=== PATIENT | male | born 1975 | race Caucasian/White ===

== ENCOUNTER 2020-02-04 15:30 | Inpatient (IN) | payer OTHER ==
[2020-02-04] MEDS ORDERED: HYDROmorphone 1 MG/ML Syringe IM ONE (16:56)
[2020-02-04] MEDS ORDERED: Ondansetron 4 MG/2 ML SDV IM ONE (16:56)
[2020-02-04] MEDS ORDERED: Sodium Chloride 0.9% 10 ML Syringe FLUSH PRN ×2 (16:57→21:13)
[2020-02-04] MEDS ORDERED: Lactated Ringers 1,000 ML IV ONE (16:57)
[2020-02-04] MEDS ORDERED: Sodium Chloride 0.9% 2.5 ML Syringe FLUSH PRN ×2 (16:57→21:13)
--- NOTE | 2020-02-04 17:00 | EDM.PDOC ---
<Mario Montoya - Last Filed: 02/04/20 18:40> ED HPI GENERAL MEDICAL PROBLEM - General Chief Complaint: Abdominal Pain Stated Complaint: GALL BLADDER COMPLICATIONS Time Seen by Provider: 02/04/20 15:32 Source of Information: Reports: Patient History Limitations: Reports: No Limitations - History of Present Illness INITIAL COMMENTS - FREE TEXT/NARRATIVE: There is a very pleasant 44-year-old man with no pertinent past medical history presenting with abdominal pain, nausea, and vomiting. Patient reports the onset of right upper quadrant abdominal pain about 5 to 6 hours ago while at rest. He describes sharp right upper quadrant abdominal pain that occasionally radiates to the groin. Nothing makes it better or worse. He also reports about 3 episodes of nonbloody emesis along with persistent nausea. No history of any preceding abdominal pain. Denies any fever, hematemesis, dysuria, urinary frequency, diarrhea, or rectal bleeding. No prior history of gallstones or kidney stones. No self treatment prior to arrival, no other complaints. ROS: A 10-point review of systems was negative, except as noted in the HPI (or in the ROS section of this note). Past medical history: Reviewed, no additional pertinent history. Surgical history: Reviewed in system, no additional pertinent history. Social history: Reviewed in system, no additional pertinent history. Family history: Reviewed in system, no additional pertinent history. PHYSICAL EXAM Vital signs reviewed. Nursing notes reviewed. Constitutional: Awake, alert, looks uncomfortable. Head: Normocephalic, atraumatic. Eyes: EOMI, conjunctiva normal, no discharge, no scleral icterus. Ears, Nose, Throat: External ears and nose normal, moist oral mucosa. Cardiovascular: 2+ radial pulse, capillary refill less than 2 seconds. Pulmonary: normal work of breathing, no accessory muscle use. Abdomen/GI: Soft, marked right upper quadrant tenderness, nondistended, no guarding or rigidity, no masses. No CVA tenderness. No tenderness at McBurney's point. Musculoskeletal: No deformities. Integumentary: Appropriate color for ethnicity, warm, moist, no pallor or jaundice, no rash. Neurologic: Alert, answering questions appropriately, normal speech, no facial droop, moving all extremities well. Psychiatric: Appropriate mood and affect, normal thought process. This patient was seen and evaluated during the 2019 SARS-CoV-2 novel coronavirus pandemic period. Community viral transmission is ongoing at time of this encounter and the emergency department is operating under pandemic response procedures. abdomen Pain Score (Numeric/FACES): 10 - Related Data Allergies Allergy/AdvReac Type Severity Reaction Status Date / Time No Known Allergies Allergy Verified 02/04/20 19:02 ED ROS GENERAL - Review of Systems Review Of Systems: See Below ED EXAM, GI/ABD - Physical Exam Exam: See Below Course - Vital Signs Text/Narrative:: 44-year-old male presenting with sudden onset right upper quadrant abdominal pain, nausea, and vomiting. Differential diagnosis includes but is not limited to: Biliary colic, cholecystitis, choledocholithiasis, kidney stone, infected kidney stone, pyelonephritis, acute hepatitis, pancreatitis, gastritis, peptic ulcer disease, perforated viscus, AAA, bowel obstruction, ileus, and many others. 5 PM: Ordered IV access, fluids, pain medications, nausea medications, labs, urinalysis, will plan for CT scan of the abdomen and pelvis. 6:20 PM: IV access has been established. This was delayed because the patient was continually rolling over in bed while nurses were trying to establish an IV and due to difficult vasculature. CBC shows normal cell lines. Metabolic panel shows hyperglycemia with normal carbon dioxide. AST 45, ALT 102, normal bilirubin and alkaline phosphatase, normal lipase. Added on a troponin. Patient is going down for a CT scan. 6:40 PM: Awaiting CT images and radiology read. Ordered IV fentanyl for additional pain relief. Patient remained in the emergency department through the end of my shift. Signed out in person my colleague Dr. Hernandez, refer to his note for the disposition. Departure - Departure Disposition: Refer to Observation Clinical Impression: Biliary colic - Discharge Information Referrals: PCP,None [Primary Care Provider] - Forms: ED Department Discharge <Dat Hernandez - Last Filed: 02/04/20 20:51> Course - Vital Signs Last Recorded V/S: Last Vital Signs Temp 95.9 F L 02/04/20 16:25 Pulse 61 02/04/20 19:09 Resp 16 02/04/20 16:25 BP 175/92 H 02/04/20 19:09 Pulse Ox 93 L 02/04/20 19:09 - Orders/Labs/Meds Orders: Active Orders 24 hr Category Date Time Status Patient Status [ADT] Routine ADT 02/04/20 20:49 Ordered Pulse Oximetry [RC] ASDIRECTED Care 02/04/20 16:57 Active NPO Now [Nothing per Oral Now Diet] [DIET] Diet 02/05/20 Breakfast Ordered Abdomen Ltd [US] Stat Exams 02/04/20 19:21 Taken UA RFX DANILO AND CULT IF INDIC [URIN] Stat Lab 02/04/20 16:00 Ordered Lactated Ringers @ 75 MLS/HR(1000ml) Med 02/04/20 21:00 Ordered Lactated Ringers [Ringers, Lactated] 1,000 ml IV ASDIRECTED Sodium Chloride 0.9% [Saline Flush] Med 02/04/20 16:57 Active 10 ml FLUSH ASDIRECTED PRN Sodium Chloride 0.9% [Saline Flush] Med 02/04/20 16:57 Active 2.5 ml FLUSH ASDIRECTED PRN Saline Lock Insert [OM.PC] Stat Oth 02/04/20 16:57 Ordered Medication Orders Lactated Ringer's (Ringers, Lactated) 1,000 mls @ 75 mls/hr IV ASDIRECTED CHICO Sodium Chloride (Saline Flush) 10 ml FLUSH ASDIRECTED PRN PRN Reason: Keep Vein Open Last Admin: 02/04/20 18:50 Dose: 10 ml Documented by: LAYSSA Sodium Chloride (Saline Flush) 2.5 ml FLUSH ASDIRECTED PRN PRN Reason: Keep Vein Open Last Admin: 02/04/20 18:49 Dose: 2.5 ml Documented by: ALYSSA Labs: Laboratory Tests 02/04/20 02/04/20 02/04/20 Range/Units 17:40 17:40 17:40 WBC 10.63 (4.0-11.0) K/uL RBC 5.21 (4.50-5.90) M/uL Hgb 15.2 (13.0-17.0) g/dL Hct 45.4 (38.0-50.0) % MCV 87.1 (80.0-98.0) fL MCH 29.2 (27.0-32.0) pg MCHC 33.5 (31.0-37.0) g/dL RDW Std Deviation 40.1 (28.0-62.0) fl RDW Coeff of Harris 13 (11.0-15.0) % Plt Count 257 (150-400) K/uL MPV 10.10 (7.40-12.00) fL Neut % (Auto) 85.9 H (48.0-80.0) % Lymph % (Auto) 10.0 L (16.0-40.0) % [place] % (Auto) 3.8 (0.0-15.0) % Eos % (Auto) 0.1 (0.0-7.0) % Baso % (Auto) 0.2 (0.0-1.5) % Neut # (Auto) 9.1 H (1.4-5.7) K/uL Lymph # (Auto) 1.1 (0.6-2.4) K/uL [place] # (Auto) 0.4 (0.0-0.8) K/uL Eos # (Auto) 0.0 (0.0-0.7) K/uL Baso # (Auto) 0.0 (0.0-0.1) K/uL Nucleated RBC % 0.0 /100WBC Nucleated RBCs # 0 K/uL Sodium 140 (136-148) mmol/L Potassium 4.1 (3.5-5.1) mmol/L Chloride 104 (98-107) mmol/L Carbon Dioxide 24.3 (21.0-32.0) mmol/L BUN 8 (7.0-18.0) mg/dL Creatinine 1.1 (0.8-1.3) mg/dL Est Cr Clr Drug Dosing 78.45 mL/min Estimated GFR (MDRD) > 60.0 ml/min Glucose 171 H (74-106) mg/dL Calcium 9.0 (8.5-10.1) mg/dL Total Bilirubin 0.4 (0.2-1.0) mg/dL AST 45 H (15-37) IU/L ALT 102 H (14-63) IU/L Alkaline Phosphatase 65 (46-116) U/L Troponin I < 0.050 (0.000-0.056) ng/mL Total Protein 8.0 (6.4-8.2) g/dL Albumin 4.0 (3.4-5.0) g/dL Globulin 4.0 (2.6-4.0) g/dL Albumin/Globulin Ratio 1.0 (0.9-1.6) Lipase 89 (73-393) U/L Meds: Medications Generic Name Dose Route Start Last Admin Trade Name Freq PRN Reason Stop Dose Admin Lactated Ringer's 1,000 mls @ 75 mls/hr 02/04/20 21:00 Ringers, Lactated IV ASDIRECTED CHICO Sodium Chloride 10 ml 02/04/20 16:57 02/04/20 18:50 Saline Flush FLUSH 10 ml ASDIRECTED PRN Administration Keep Vein Open Sodium Chloride 2.5 ml 02/04/20 16:57 02/04/20 18:49 Saline Flush FLUSH 2.5 ml ASDIRECTED PRN Administration Keep Vein Open Discontinued Medications Generic Name Dose Route Start Last Admin Trade Name Freq PRN Reason Stop Dose Admin Fentanyl 100 mcg 02/04/20 18:38 02/04/20 18:46 Fentanyl IVPUSH 02/04/20 18:39 100 mcg ONETIME ONE Administration Hydromorphone HCl 1 mg 02/04/20 16:56 02/04/20 17:19 Dilaudid IM 02/04/20 16:57 1 mg ONETIME ONE Administration Lactated Ringer's 1,000 mls @ 999 mls/hr 02/04/20 16:57 02/04/20 18:46 Ringers, Lactated IV 02/04/20 17:57 999 mls/hr .BOLUS ONE Administration Iopamidol 100 ml 02/04/20 18:47 02/04/20 18:47 Isovue Multipack-370 (76%) IVPUSH 02/04/20 18:48 100 ml ONETIME ONE Administration Morphine Sulfate 4 mg 02/04/20 20:48 Morphine IVPUSH 02/04/20 20:49 ONETIME ONE Ondansetron HCl 4 mg 02/04/20 16:56 02/04/20 17:19 Zofran IM 02/04/20 16:57 4 mg ONETIME ONE Administration Departure - Departure Time of Disposition: 20:51 Sepsis Event Note (ED) - Focused Exam Vital Signs: Vital Signs Temp Pulse Resp BP Pulse Ox 02/04/20 19:09 61 175/92 H 93 L 02/04/20 16:25 95.9 F L 57 L 16 168/93 H 95 - My Orders Last 24 Hours: My Active Orders 02/04/20 19:21 Abdomen Ltd [US] Stat 02/04/20 20:49 Patient Status [ADT] Routine 02/04/20 21:00 Lactated Ringers @ 75 MLS/HR(1000ml) Lactated Ringers [Ringers, Lactated] 1,000 ml IV ASDIRECTED 02/05/20 Breakfast NPO Now [Nothing per Oral Now Diet] [DIET] - Assessment/Plan Last 24 Hours: My Active Orders 02/04/20 19:21 Abdomen Ltd [US] Stat 02/04/20 20:49 Patient Status [ADT] Routine 02/04/20 21:00 Lactated Ringers @ 75 MLS/HR(1000ml) Lactated Ringers [Ringers, Lactated] 1,000 ml IV ASDIRECTED 02/05/20 Breakfast NPO Now [Nothing per Oral Now Diet] [DIET] Assessment:: Patient received in signout from Dr. Montoya at [address] with impacted stone in the gallbladder neck ultrasound demonstrates a mildly thickened wall but no pericholecystic fluid CBD is normal. Patient discussed with Dr. Canales of general surgery. Will admit n.p.o. IV fluids and reassessment in the morning.
[2020-02-04 18:11] LABS: BLOOD UREA NITROGEN,BUN 8 mg/dL (7.0-18.0); CARBON DIOXIDE,CO2 24.3 mmol/L (21.0-32.0); CHLORIDE,CL 104 mmol/L (98-107); GLUCOSE RANDOM 171 mg/dL (74-106); LIPASE 89 U/L (73-393); POTASSIUM,K 4.1 mmol/L (3.5-5.1); SODIUM,NA 140 mmol/L (136-148)
[2020-02-04] MEDS ORDERED: fentaNYL 50 MCG/ML SDV IVPUSH ONE (18:38)
[2020-02-04] MEDS ORDERED: Iopamidol 755 MG/ML 500 ML Multipack Bottle IVPUSH ONE (18:47)
--- NOTE | 2020-02-04 19:19 | CT ---
INDICATION: Right upper quadrant pain. TECHNIQUE: CT abdomen and pelvis acquired with IV contrast. 100 mL of Isovue 370 administered. COMPARISON: None available FINDINGS: Lower chest: Mild subsegmental atelectasis. Gynecomastia. Liver: Hepatic steatosis. 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 Spleen: Unremarkable. Pancreas: A subcentimeter fat attenuation focus in the distal pancreatic body could be related to invaginated peripancreatic fat. Gallbladder and bile ducts: A 9 mm annular calcification at the gallbladder neck on image 55, suggestive of a gallstone. Subtle ill-defined luminal densities within the gallbladder could represent sludge or additional poorly calcified gallstones. Adrenal glands: Unremarkable. Kidneys: No hydronephrosis. A 3 mm nonobstructive left renal lower pole calcification. GI tract: No bowel obstruction. Normal appendix. No significant pericolonic changes. Few colonic diverticula without diverticulitis. Vascular structures: Unremarkable. Lymph nodes: Unremarkable. Miscellaneous: No significant free fluid or free air. Pelvic Organs: Borderline prostatomegaly. No gross bladder abnormality seen. Bones: Unremarkable for age. IMPRESSION: An apparent gallstone at the gallbladder neck. Recommend sonographic evaluation to exclude early gallbladder inflammation, given the history. Hepatic steatosis. 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 Borderline prostatomegaly Please note that all CT scans at this facility use dose modulation, iterative reconstruction, and/or weight-based dosing when appropriate to reduce radiation dose to as low as reasonably achievable. Dictated by Ariel Pino MD @ Feb 04 2020 7:05PM Signed by Dr. Ariel Pino @ Feb 04 2020 7:18PM
[2020-02-04] MEDS ORDERED: Morphine 4 MG/ML Syringe IVPUSH ONE (20:48)
[2020-02-04] MEDS: Lactated Ringers 1,000 ML IV SCH (21:02)
--- NOTE | 2020-02-04 21:04 | US ---
TECHNIQUE: Hunter scale and color Doppler sonographic imaging of the right upper abdomen. INDICATION: Right upper abdominal pain, cholelithiasis. COMPARISON: Same date abdominal CT. FINDINGS: Liver is normal in contour with diffusely increased echogenicity. No suspicious hepatic lesion or intrahepatic biliary dilatation. - Gallbladder contains multiple stones and echogenic sludge. Gallbladder wall measures 4-5 millimeters in diameter. No pericholecystic fluid or gallbladder wall edema. - Common bile duct measures 4 mm diameter. - Right kidney measures 12.2 cm in length and is without hydronephrosis. - Overlying bowel gas precludes evaluation of the pancreas, aorta, and IVC. IMPRESSION: 1. Cholelithiasis with mild gallbladder wall thickening. Findings are indeterminate though early acute cholecystitis is not excluded. Consider further evaluation with nuclear medicine hepatobiliary scan, as clinically indicated. 2. Diffuse hepatic steatosis. Dictated by Los Lee MD @ 02/04/2020 9:03:27 PM Dictated by: Los Lee MD @ 02/04/2020 21:03:33 (Electronically Signed)
--- NOTE | 2020-02-04 21:11 | PCM.HP.2 ---
H&P History of Present Illness - General Date of Service: 02/04/20 Admit Problem/Dx: Admission Diagnosis/Problem Admission Diagnosis/Problem Biliary colic Source of Information: Patient History Limitations: Reports: No Limitations - History of Present Illness Initial Comments - Free Text/Narative: Patient is a 44 year old male who presented to the ER tonight with an acute on set of pain in the RUQ. He states he had similar pain that was no so severe 2 years ago. He was told he was dehydrated but doesn't recall if he had gallbladder issues at the time. He states that around 11 o'clock today he developed sharp RUQ. He vomited three times afterwards. He presented to the ER. His vitals were stable. He had a normal white blood count but an elevated neurtophil percent. He had an elevated glucose and mildly elevated ast and alt. CT abdomen pelvis showed gallstones. An US was performed that showed multiple stones as well as one in the neck of the gallbladder. He had a border line thickened gallbladder wall. There was questionable early acute appendicitis. He was given morphine but still had pain. abdomen Pain Score (Numeric/FACES): 10 - Related Data Allergies/Adverse Reactions: Allergies Allergy/AdvReac Type Severity Reaction Status Date / Time No Known Allergies Allergy Verified 02/04/20 19:02 Past Medical History Cardiovascular History: Reports: None Respiratory History: Reports: None Gastrointestinal History: Reports: None Endocrine/Metabolic History: Reports: None - Past Surgical History Other HEENT Surgeries/Procedures: wisdom teeth extraction Musculoskeletal Surgical History: Reports: ORIF, Other (See Below) (Bilateral ankle surgery, right wrist surgery) Social & Family History - Family History Family Medical History: No Pertinent Family History - Tobacco Use Tobacco Use Status *Q: Never Tobacco User Second Hand Smoke Exposure: No - Caffeine Use Caffeine Use: Reports: None - Recreational Drug Use Recreational Drug Use: No H&P Review of Systems - Review of Systems: Review Of Systems: Comprehensive ROS is negative, except as noted in HPI. Exam - Exam Exam: See Below - Vital Signs Vital Signs: Last Vital Signs Temp 35.7 C L 02/04/20 20:51 Pulse 60 02/04/20 20:51 Resp 18 02/04/20 20:51 BP 172/97 H 02/04/20 20:51 Pulse Ox 95 02/04/20 20:51 Weight: 106.594 kg - Exam General: Alert, Oriented, Severe Distress HEENT: Conjunctiva Clear, Mucosa Moist & [place], Posterior Pharynx Clear Neck: Supple Lungs: Clear to Auscultation, Normal Respiratory Effort Cardiovascular: Regular Rate, Regular Rhythm GI/Abdominal Exam: Soft, No Distention, No Mass, Tender (RUQ) Back Exam: Normal Inspection, Full Range of Motion Extremities: Normal Inspection - Patient Data Lab Results Last 24 hrs: Laboratory Results - last 24 hr 02/04/20 02/04/20 02/04/20 Range/Units 17:40 17:40 17:40 WBC 10.63 (4.0-11.0) K/uL RBC 5.21 (4.50-5.90) M/uL Hgb 15.2 (13.0-17.0) g/dL Hct 45.4 (38.0-50.0) % MCV 87.1 (80.0-98.0) fL MCH 29.2 (27.0-32.0) pg MCHC 33.5 (31.0-37.0) g/dL RDW Std Deviation 40.1 (28.0-62.0) fl RDW Coeff of Harris 13 (11.0-15.0) % Plt Count 257 (150-400) K/uL MPV 10.10 (7.40-12.00) fL Neut % (Auto) 85.9 H (48.0-80.0) % Lymph % (Auto) 10.0 L (16.0-40.0) % [place] % (Auto) 3.8 (0.0-15.0) % Eos % (Auto) 0.1 (0.0-7.0) % Baso % (Auto) 0.2 (0.0-1.5) % Neut # (Auto) 9.1 H (1.4-5.7) K/uL Lymph # (Auto) 1.1 (0.6-2.4) K/uL [place] # (Auto) 0.4 (0.0-0.8) K/uL Eos # (Auto) 0.0 (0.0-0.7) K/uL Baso # (Auto) 0.0 (0.0-0.1) K/uL Nucleated RBC % 0.0 /100WBC Nucleated RBCs # 0 K/uL Sodium 140 (136-148) mmol/L Potassium 4.1 (3.5-5.1) mmol/L Chloride 104 (98-107) mmol/L Carbon Dioxide 24.3 (21.0-32.0) mmol/L BUN 8 (7.0-18.0) mg/dL Creatinine 1.1 (0.8-1.3) mg/dL Est Cr Clr Drug Dosing 78.45 mL/min Estimated GFR (MDRD) > 60.0 ml/min Glucose 171 H (74-106) mg/dL Calcium 9.0 (8.5-10.1) mg/dL Total Bilirubin 0.4 (0.2-1.0) mg/dL AST 45 H (15-37) IU/L ALT 102 H (14-63) IU/L Alkaline Phosphatase 65 (46-116) U/L Troponin I < 0.050 (0.000-0.056) ng/mL Total Protein 8.0 (6.4-8.2) g/dL Albumin 4.0 (3.4-5.0) g/dL Globulin 4.0 (2.6-4.0) g/dL Albumin/Globulin Ratio 1.0 (0.9-1.6) Lipase 89 (73-393) U/L Result Diagrams: 02/04/20 17:40 02/04/20 17:40 Sepsis Event Note - Evaluation Sepsis Screening Result: No Definite Risk - Focused Exam Vital Signs: Vital Signs Temp Pulse Resp BP Pulse Ox 02/04/20 20:51 35.7 C L 60 18 172/97 H 95 02/04/20 20:22 35.7 C L 65 18 167/94 H 95 02/04/20 19:52 35.7 C L 61 18 164/94 H 95 02/04/20 19:21 35.7 C L 62 18 171/91 H 95 02/04/20 19:09 61 175/92 H 93 L 02/04/20 16:25 35.5 C L 57 L 16 168/93 H 95 Problem List Initiated/Reviewed/Updated: Yes Orders Last 24hrs: Active Orders 24 hr Category Date Time Status Patient Status [ADT] Routine ADT 02/04/20 20:49 Active Pulse Oximetry [RC] ASDIRECTED Care 02/04/20 16:57 Active NPO Now [Nothing per Oral Now Diet] [DIET] Diet 02/05/20 Breakfast Active CORONAVIRUS COVID-19 PCR PHL Stat Lab 02/04/20 20:52 Ordered UA RFX DANILO AND CULT IF INDIC [URIN] Stat Lab 02/04/20 16:00 Ordered Lactated Ringers [Ringers, Lactated] 1,000 ml Med 02/04/20 21:00 Active IV ASDIRECTED Sodium Chloride 0.9% [Saline Flush] Med 02/04/20 16:57 Active 10 ml FLUSH ASDIRECTED PRN Sodium Chloride 0.9% [Saline Flush] Med 02/04/20 16:57 Active 2.5 ml FLUSH ASDIRECTED PRN Saline Lock Insert [OM.PC] Stat Oth 02/04/20 16:57 Ordered Medication Orders Lactated Ringer's (Ringers, Lactated) 1,000 mls @ 75 mls/hr IV ASDIRECTED CHICO Last Admin: 02/04/20 21:02 Dose: 75 mls/hr Documented by: JEFFERY Sodium Chloride (Saline Flush) 10 ml FLUSH ASDIRECTED PRN PRN Reason: Keep Vein Open Last Admin: 02/04/20 18:50 Dose: 10 ml Documented by: ALYSSA Sodium Chloride (Saline Flush) 2.5 ml FLUSH ASDIRECTED PRN PRN Reason: Keep Vein Open Last Admin: 02/04/20 18:49 Dose: 2.5 ml Documented by: ALYSSA Assessment/Plan Comment:: Patient and I discussed the pathophysiology of biliary disease. He has symptomatic cholelithiasis or early acute cholecystitis. Either way, given his pain, he should have a cholecystectomy. Will admit to the floor for IV and oral pain control, IV fluid resuscitation, IV antibiotics and bowel rest. I explained the laparoscopic and open approach to the procedure. I will attempt it laparoscopically and convert to open should I be unable to perform it safely. I explained the expected perioperative course as well as the risks including bleeding, infection, or damage to surrounding structures. He verbalized understanding and wishes to proceed.
[2020-02-04] MEDS ORDERED: Ondansetron 4 MG/2 ML SDV IVPUSH PRN (21:13)
[2020-02-04] MEDS ORDERED: diphenhydrAMINE 50 MG/ML SDV IVPUSH PRN (21:13)
[2020-02-04] MEDS ORDERED: Acetaminophen/oxyCODONE 325-5 MG Tab PO PRN (21:13)
[2020-02-04] MEDS ORDERED: Sodium Chloride 0.9% 10 ML SDV IV PRN (21:13)
[2020-02-04] MEDS ORDERED: hydrALAZINE 20 MG/ML SDV IVPUSH PRN (21:13)
[2020-02-04 21:37] LABS: HEMOGLOBIN A1C 6.2 %
[2020-02-04] MEDS ORDERED: Ketorolac 30 MG/ML SDV IVPUSH ONE (21:43)
[2020-02-04] MEDS: HYDROmorphone 2 MG/ML Syringe IVPUSH PRN (21:52)
[2020-02-04] MEDS: Piperacillin/Tazobactam 3.375 GM in Sodium Chloride 0.9% 50 ML IV SCH (22:40)
[2020-02-05] MEDS: Piperacillin/Tazobactam 3.375 GM in Sodium Chloride 0.9% 50 ML IV SCH ×4 (03:43→22:07)
[2020-02-05] MEDS: HYDROmorphone 2 MG/ML Syringe IVPUSH PRN ×5 (04:19→13:59)
[2020-02-05 06:40] LABS: BLOOD UREA NITROGEN,BUN 7 mg/dL (7.0-18.0); CARBON DIOXIDE,CO2 28.1 mmol/L (21.0-32.0); CHLORIDE,CL 104 mmol/L (98-107); GLUCOSE RANDOM 100 mg/dL (74-106); POTASSIUM,K 3.6 mmol/L (3.5-5.1); SODIUM,NA 140 mmol/L (136-148)
[2020-02-05] MEDS: Lactated Ringers 1,000 ML IV SCH ×2 (06:47→20:26)
[2020-02-05] MEDS: Scopolamine 1.5 MG Transdermal Patch TRDERM SCH (07:53)
--- NOTE | 2020-02-05 09:01 | PCM.SURGPN ---
- General Info Date of Service: 02/05/20 Functional Status: Reports: Other (Patient's pain is under better control today. He denies any nausea or vomiting overnight. Vital signs stable. Making good urine.) - Review of Systems General: Reports: Fatigue, Malaise HEENT: Reports: No Symptoms Pulmonary: Reports: No Symptoms Cardiovascular: Reports: No Symptoms Gastrointestinal: Reports: Abdominal Pain (RUQ) Musculoskeletal: Reports: No Symptoms Skin: Reports: No Symptoms - Patient Data Vitals - Most Recent: Last Vital Signs Temp 36.6 C 02/05/20 07:37 Pulse 63 02/05/20 07:37 Resp 14 02/05/20 07:37 BP 147/77 H 02/05/20 07:37 Pulse Ox 93 L 02/05/20 07:37 Weight - Most Recent: 266.9 kg I&O - Last 24 Hours: Intake & Output 02/04/20 02/05/20 02/05/20 22:59 06:59 14:59 Intake Total 1026 Output Total 800 Balance 226 Lab Results Last 24 Hrs: Laboratory Results - last 24 hr 02/04/20 02/04/20 02/04/20 Range/Units 00:00 17:40 17:40 WBC 10.63 (4.0-11.0) K/uL RBC 5.21 (4.50-5.90) M/uL Hgb 15.2 (13.0-17.0) g/dL Hct 45.4 (38.0-50.0) % MCV 87.1 (80.0-98.0) fL MCH 29.2 (27.0-32.0) pg MCHC 33.5 (31.0-37.0) g/dL RDW Std Deviation 40.1 (28.0-62.0) fl RDW Coeff of Harris 13 (11.0-15.0) % Plt Count 257 (150-400) K/uL MPV 10.10 (7.40-12.00) fL Neut % (Auto) 85.9 H (48.0-80.0) % Lymph % (Auto) 10.0 L (16.0-40.0) % [place] % (Auto) 3.8 (0.0-15.0) % Eos % (Auto) 0.1 (0.0-7.0) % Baso % (Auto) 0.2 (0.0-1.5) % Neut # (Auto) 9.1 H (1.4-5.7) K/uL Lymph # (Auto) 1.1 (0.6-2.4) K/uL [place] # (Auto) 0.4 (0.0-0.8) K/uL Eos # (Auto) 0.0 (0.0-0.7) K/uL Baso # (Auto) 0.0 (0.0-0.1) K/uL Nucleated RBC % 0.0 /100WBC Nucleated RBCs # 0 K/uL Sodium 140 (136-148) mmol/L Potassium 4.1 (3.5-5.1) mmol/L Chloride 104 (98-107) mmol/L Carbon Dioxide 24.3 (21.0-32.0) mmol/L BUN 8 (7.0-18.0) mg/dL Creatinine 1.1 (0.8-1.3) mg/dL Est Cr Clr Drug Dosing 78.45 mL/min Estimated GFR (MDRD) > 60.0 ml/min Glucose 171 H (74-106) mg/dL Hemoglobin A1c (4.5 - 6.2) % Calcium 9.0 (8.5-10.1) mg/dL Total Bilirubin 0.4 (0.2-1.0) mg/dL AST 45 H (15-37) IU/L ALT 102 H (14-63) IU/L Alkaline Phosphatase 65 (46-116) U/L Troponin I (0.000-0.056) ng/mL Total Protein 8.0 (6.4-8.2) g/dL Albumin 4.0 (3.4-5.0) g/dL Globulin 4.0 (2.6-4.0) g/dL Albumin/Globulin Ratio 1.0 (0.9-1.6) Lipase 89 (73-393) U/L Urine Color YELLOW Urine Appearance CLEAR Urine pH 5.5 (5.0-8.0) Ur Specific [place] 1.025 (1.001-1.035) Urine Protein NEGATIVE (NEGATIVE) mg/dL Urine Glucose (UA) NEGATIVE (NEGATIVE) mg/dL Urine Ketones NEGATIVE (NEGATIVE) mg/dL Urine Occult Blood SMALL H (NEGATIVE) Urine Nitrite NEGATIVE (NEGATIVE) Urine Bilirubin NEGATIVE (NEGATIVE) Urine Urobilinogen 0.2 (<2.0) EU/dL Ur Leukocyte Esterase NEGATIVE (NEGATIVE) Urine RBC 0-2 (0-2/HPF) Urine WBC 0-1 (0-5/HPF) Ur Epithelial Cells RARE (NONE-FEW) Urine Bacteria RARE (NEGATIVE) SARS-CoV-2 RNA (PANCHO) (NEGATIVE) 02/04/20 02/04/20 02/04/20 Range/Units 17:40 17:40 21:15 WBC (4.0-11.0) K/uL RBC (4.50-5.90) M/uL Hgb (13.0-17.0) g/dL Hct (38.0-50.0) % MCV (80.0-98.0) fL MCH (27.0-32.0) pg MCHC (31.0-37.0) g/dL RDW Std Deviation (28.0-62.0) fl RDW Coeff of Harris (11.0-15.0) % Plt Count (150-400) K/uL MPV (7.40-12.00) fL Neut % (Auto) (48.0-80.0) % Lymph % (Auto) (16.0-40.0) % [place] % (Auto) (0.0-15.0) % Eos % (Auto) (0.0-7.0) % Baso % (Auto) (0.0-1.5) % Neut # (Auto) (1.4-5.7) K/uL Lymph # (Auto) (0.6-2.4) K/uL [place] # (Auto) (0.0-0.8) K/uL Eos # (Auto) (0.0-0.7) K/uL Baso # (Auto) (0.0-0.1) K/uL Nucleated RBC % /100WBC Nucleated RBCs # K/uL Sodium (136-148) mmol/L Potassium (3.5-5.1) mmol/L Chloride (98-107) mmol/L Carbon Dioxide (21.0-32.0) mmol/L BUN (7.0-18.0) mg/dL Creatinine (0.8-1.3) mg/dL Est Cr Clr Drug Dosing mL/min Estimated GFR (MDRD) ml/min Glucose (74-106) mg/dL Hemoglobin A1c 6.2 (4.5 - 6.2) % Calcium (8.5-10.1) mg/dL Total Bilirubin (0.2-1.0) mg/dL AST (15-37) IU/L ALT (14-63) IU/L Alkaline Phosphatase (46-116) U/L Troponin I < 0.050 (0.000-0.056) ng/mL Total Protein (6.4-8.2) g/dL Albumin (3.4-5.0) g/dL Globulin (2.6-4.0) g/dL Albumin/Globulin Ratio (0.9-1.6) Lipase (73-393) U/L Urine Color Urine Appearance Urine pH (5.0-8.0) Ur Specific [place] (1.001-1.035) Urine Protein (NEGATIVE) mg/dL Urine Glucose (UA) (NEGATIVE) mg/dL Urine Ketones (NEGATIVE) mg/dL Urine Occult Blood (NEGATIVE) Urine Nitrite (NEGATIVE) Urine Bilirubin (NEGATIVE) Urine Urobilinogen (<2.0) EU/dL Ur Leukocyte Esterase (NEGATIVE) Urine RBC (0-2/HPF) Urine WBC (0-5/HPF) Ur Epithelial Cells (NONE-FEW) Urine Bacteria (NEGATIVE) SARS-CoV-2 RNA (PANCHO) NEGATIVE (NEGATIVE) 02/05/20 02/05/20 Range/Units 05:50 05:50 WBC 9.30 (4.0-11.0) K/uL RBC 4.84 (4.50-5.90) M/uL Hgb 13.8 (13.0-17.0) g/dL Hct 42.6 (38.0-50.0) % MCV 88.0 (80.0-98.0) fL MCH 28.5 (27.0-32.0) pg MCHC 32.4 (31.0-37.0) g/dL RDW Std Deviation 41.0 (28.0-62.0) fl RDW Coeff of Harris 13 (11.0-15.0) % Plt Count 257 (150-400) K/uL MPV 10.00 (7.40-12.00) fL Neut % (Auto) 65.2 (48.0-80.0) % Lymph % (Auto) 23.4 (16.0-40.0) % [place] % (Auto) 10.2 (0.0-15.0) % Eos % (Auto) 1.0 (0.0-7.0) % Baso % (Auto) 0.2 (0.0-1.5) % Neut # (Auto) 6.1 H (1.4-5.7) K/uL Lymph # (Auto) 2.2 (0.6-2.4) K/uL [place] # (Auto) 1.0 H (0.0-0.8) K/uL Eos # (Auto) 0.1 (0.0-0.7) K/uL Baso # (Auto) 0.0 (0.0-0.1) K/uL Nucleated RBC % 0.0 /100WBC Nucleated RBCs # 0 K/uL Sodium 140 (136-148) mmol/L Potassium 3.6 (3.5-5.1) mmol/L Chloride 104 (98-107) mmol/L Carbon Dioxide 28.1 (21.0-32.0) mmol/L BUN 7 (7.0-18.0) mg/dL Creatinine 1.0 (0.8-1.3) mg/dL Est Cr Clr Drug Dosing 95.31 mL/min Estimated GFR (MDRD) > 60.0 ml/min Glucose 100 (74-106) mg/dL Hemoglobin A1c (4.5 - 6.2) % Calcium 8.7 (8.5-10.1) mg/dL Total Bilirubin 0.7 (0.2-1.0) mg/dL AST 33 (15-37) IU/L ALT 87 H (14-63) IU/L Alkaline Phosphatase 57 (46-116) U/L Troponin I (0.000-0.056) ng/mL Total Protein 6.9 (6.4-8.2) g/dL Albumin 3.4 (3.4-5.0) g/dL Globulin 3.5 (2.6-4.0) g/dL Albumin/Globulin Ratio 1.0 (0.9-1.6) Lipase (73-393) U/L Urine Color Urine Appearance Urine pH (5.0-8.0) Ur Specific [place] (1.001-1.035) Urine Protein (NEGATIVE) mg/dL Urine Glucose (UA) (NEGATIVE) mg/dL Urine Ketones (NEGATIVE) mg/dL Urine Occult Blood (NEGATIVE) Urine Nitrite (NEGATIVE) Urine Bilirubin (NEGATIVE) Urine Urobilinogen (<2.0) EU/dL Ur Leukocyte Esterase (NEGATIVE) Urine RBC (0-2/HPF) Urine WBC (0-5/HPF) Ur Epithelial Cells (NONE-FEW) Urine Bacteria (NEGATIVE) SARS-CoV-2 RNA (PANCHO) (NEGATIVE) Med Orders - Current: Current Medications Diphenhydramine HCl (Benadryl) 50 mg IVPUSH Q4H PRN PRN Reason: Itching Hydralazine HCl (Apresoline) 10 mg IVPUSH Q2H PRN PRN Reason: Hypertension Hydromorphone HCl (Dilaudid) 0.5 mg IVPUSH Q1H PRN PRN Reason: Pain (severe 7-10) Last Admin: 02/05/20 06:41 Dose: 0.5 mg Documented by: Lactated Ringer's (Ringers, Lactated) 1,000 mls @ 125 mls/hr IV ASDIRECTED [facility] Last Admin: 02/05/20 06:47 Dose: 75 mls/hr Documented by: Piperacillin Sod/Tazobactam (Sod 3.375 gm/ Sodium Chloride) 50 mls @ 100 mls/hr IV Q6H [facility] Last Admin: 02/05/20 03:43 Dose: 100 mls/hr Documented by: Ondansetron HCl (Zofran) 4 mg IVPUSH Q6H PRN PRN Reason: Nausea/Vomiting Last Admin: 02/05/20 04:13 Dose: 4 mg Documented by: Oxycodone/Acetaminophen (Percocet 325-5 Mg) 2 tab PO Q4H PRN PRN Reason: Pain (moderate 4-6) Scopolamine (Transderm-Scop) 1.5 mg TRDERM Q72H [facility] Last Admin: 02/05/20 07:53 Dose: 1.5 mg Documented by: Sodium Chloride (Saline Flush) 10 ml FLUSH ASDIRECTED PRN PRN Reason: Keep Vein Open Last Admin: 02/04/20 18:50 Dose: 10 ml Documented by: Sodium Chloride (Saline Flush) 2.5 ml FLUSH ASDIRECTED PRN PRN Reason: Keep Vein Open Last Admin: 02/04/20 18:49 Dose: 2.5 ml Documented by: Sodium Chloride (Saline Flush) 10 ml FLUSH ASDIRECTED PRN PRN Reason: Keep Vein Open Sodium Chloride (Saline Flush) 2.5 ml FLUSH ASDIRECTED PRN PRN Reason: Keep Vein Open Sodium Chloride (Normal Saline) 10 ml IV ASDIRECTED PRN PRN Reason: IV Use Discontinued Medications Fentanyl (Fentanyl) 100 mcg IVPUSH ONETIME ONE Stop: 02/04/20 18:39 Last Admin: 02/04/20 18:46 Dose: 100 mcg Documented by: Hydromorphone HCl (Dilaudid) 1 mg IM ONETIME ONE Stop: 02/04/20 16:57 Last Admin: 02/04/20 17:19 Dose: 1 mg Documented by: Lactated Ringer's (Ringers, Lactated) 1,000 mls @ 999 mls/hr IV .BOLUS ONE Stop: 02/04/20 17:57 Last Admin: 02/04/20 18:46 Dose: 999 mls/hr Documented by: Iopamidol (Isovue Multipack-370 (76%)) 100 ml IVPUSH ONETIME ONE Stop: 02/04/20 18:48 Last Admin: 02/04/20 18:47 Dose: 100 ml Documented by: Ketorolac Tromethamine (Toradol) 30 mg IVPUSH ONETIME ONE Stop: 02/04/20 21:44 Last Admin: 02/04/20 21:53 Dose: 30 mg Documented by: Morphine Sulfate (Morphine) 4 mg IVPUSH ONETIME ONE Stop: 02/04/20 20:49 Last Admin: 02/04/20 20:56 Dose: 4 mg Documented by: Ondansetron HCl (Zofran) 4 mg IM ONETIME ONE Stop: 02/04/20 16:57 Last Admin: 02/04/20 17:19 Dose: 4 mg Documented by: - Exam General: Alert, Oriented Lungs: Clear to Auscultation, Normal Respiratory Effort Cardiovascular: Regular Rate, Regular Rhythm GI/Abdominal Exam: Soft, No Distention, No Mass, Tender (mild tenderness in RUQ) Skin: Warm, Dry, Intact Sepsis Event Note - Evaluation Sepsis Screening Result: No Definite Risk - Focused Exam Vital Signs: Vital Signs Temp Pulse Resp BP Pulse Ox Pulse Ox 02/05/20 07:37 36.6 C 63 14 147/77 H 93 L 02/05/20 03:36 36.1 C 62 16 159/85 H 95 02/04/20 23:31 36.4 C 74 18 129/84 94 L 02/04/20 22:40 36.4 C 66 20 143/86 H 93 L 02/04/20 22:00 35.7 C L 58 L 18 159/87 H 95 02/04/20 21:13 94 L - Problem List & Annotations (1) Biliary colic SNOMED Code(s): 00946397 Code(s): K80.50 - CALCULUS OF BILE DUCT W/O CHOLANGITIS OR CHOLECYST W/O OBST Status: Acute Current Visit: Yes - Problem List Review Problem List Initiated/Reviewed/Updated: Yes - My Orders Last 24 Hours: Active Orders 24 hr Category Date Time Status Patient Status [ADT] Routine ADT 02/04/20 21:13 Active May Shower [RC] ASDIRECTED Care 02/04/20 21:13 Active Oxygen Therapy [RC] PRN Care 02/04/20 21:13 Active Pulse Oximetry [RC] ASDIRECTED Care 02/04/20 16:57 Active RT Incentive Spirometry [RC] Q1HWA Care 02/04/20 21:13 Active Up ad Crystal [RC] ASDIRECTED Care 02/04/20 21:13 Active Vital Signs [RC] PER UNIT ROUTINE Care 02/04/20 21:13 Active NPO Now [Nothing per Oral Now Diet] [DIET] Diet 02/05/20 Breakfast Active Acetaminophen/oxyCODONE [Percocet 325-5 MG] Med 02/04/20 21:13 Active 2 tab PO Q4H PRN HYDROmorphone [Dilaudid] Med 02/04/20 21:13 Active 0.5 mg IVPUSH Q1H PRN Lactated Ringers [Ringers, Lactated] 1,000 ml Med 02/04/20 21:00 Active IV ASDIRECTED Ondansetron [Zofran] Med 02/04/20 21:13 Active 4 mg IVPUSH Q6H PRN Piperacillin/Tazobactam [Piperacil-Tazobact] 3.375 gm Med 02/04/20 22:00 Active Sodium Chloride 0.9% [Normal Saline] 50 ml IV Q6H Scopolamine [Transderm-Scop] Med 02/04/20 21:30 Active 1.5 mg TRDERM Q72H Sodium Chloride 0.9% [Normal Saline] Med 02/04/20 21:13 Active 10 ml IV ASDIRECTED PRN Sodium Chloride 0.9% [Saline Flush] Med 02/04/20 16:57 Active 10 ml FLUSH ASDIRECTED PRN Sodium Chloride 0.9% [Saline Flush] Med 02/04/20 21:13 Active 10 ml FLUSH ASDIRECTED PRN Sodium Chloride 0.9% [Saline Flush] Med 02/04/20 16:57 Active 2.5 ml FLUSH ASDIRECTED PRN Sodium Chloride 0.9% [Saline Flush] Med 02/04/20 21:13 Active 2.5 ml FLUSH ASDIRECTED PRN diphenhydrAMINE [Benadryl] Med 02/04/20 21:13 Active 50 mg IVPUSH Q4H PRN hydrALAZINE [Apresoline] Med 02/04/20 21:13 Active 10 mg IVPUSH Q2H PRN Peripheral IV Insertion Adult [OM.PC] Urgent Oth 02/04/20 21:13 Ordered Saline Lock Insert [OM.PC] Stat Oth 02/04/20 16:57 Ordered Resuscitation Status Routine Resus Stat 02/04/20 21:13 Ordered Medication Orders Diphenhydramine HCl (Benadryl) 50 mg IVPUSH Q4H PRN PRN Reason: Itching Hydralazine HCl (Apresoline) 10 mg IVPUSH Q2H PRN PRN Reason: Hypertension Hydromorphone HCl (Dilaudid) 0.5 mg IVPUSH Q1H PRN PRN Reason: Pain (severe 7-10) Last Admin: 02/05/20 06:41 Dose: 0.5 mg Documented by: Admin: 02/05/20 04:19 Dose: 0.5 mg Documented by: Admin: 02/04/20 21:52 Dose: 0.5 mg Documented by: JEFFERY Lactated Ringer's (Ringers, Lactated) 1,000 mls @ 125 mls/hr IV ASDIRECTED [facility] Last Admin: 02/05/20 06:47 Dose: 75 mls/hr Documented by: Infusion: 02/05/20 06:47 Dose: 125 mls/hr Documented by: Admin: 02/04/20 21:02 Dose: 75 mls/hr Documented by: JEFFERY Piperacillin Sod/Tazobactam (Sod 3.375 gm/ Sodium Chloride) 50 mls @ 100 mls/hr IV Q6H [facility] Last Admin: 02/05/20 03:43 Dose: 100 mls/hr Documented by: Infusion: 02/04/20 23:10 Dose: 100 mls/hr Documented by: Admin: 02/04/20 22:40 Dose: 100 mls/hr Documented by: JEFFERY Ondansetron HCl (Zofran) 4 mg IVPUSH Q6H PRN PRN Reason: Nausea/Vomiting Last Admin: 02/05/20 04:13 Dose: 4 mg Documented by: LOBITO Oxycodone/Acetaminophen (Percocet 325-5 Mg) 2 tab PO Q4H PRN PRN Reason: Pain (moderate 4-6) Scopolamine (Transderm-Scop) 1.5 mg TRDERM Q72H [facility] Last Admin: 02/05/20 07:53 Dose: 1.5 mg Documented by: LOBITO Sodium Chloride (Saline Flush) 10 ml FLUSH ASDIRECTED PRN PRN Reason: Keep Vein Open Last Admin: 02/04/20 18:50 Dose: 10 ml Documented by: ALYSSA Sodium Chloride (Saline Flush) 2.5 ml FLUSH ASDIRECTED PRN PRN Reason: Keep Vein Open Last Admin: 02/04/20 18:49 Dose: 2.5 ml Documented by: ALYSSA Sodium Chloride (Saline Flush) 10 ml FLUSH ASDIRECTED PRN PRN Reason: Keep Vein Open Sodium Chloride (Saline Flush) 2.5 ml FLUSH ASDIRECTED PRN PRN Reason: Keep Vein Open Sodium Chloride (Normal Saline) 10 ml IV ASDIRECTED PRN PRN Reason: IV Use - Plan Plan (Free Text/Narrative):: Plan for surgery today.The patient and I discussed the pathophysiology of biliary disease. For symptomatic cholelithiasis, treatment is removal of the gallbladder. The patient and I discussed the laparoscopic and open approach to cholecystectomy. Should I be unable to remove the gallbladder safely via the laparoscopic approach I will convert to open. We discussed the expected perioperative course as well as the risks including bleeding infection or damage to surrounding structures. Patient verbalized understanding and wishes to proceed. Continue to be nothing by mouth with IV fluids and IV antibiotics.
[2020-02-05] MEDS ORDERED: Ondansetron 4 MG/2 ML SDV ONE (10:37)
[2020-02-05] MEDS ORDERED: Midazolam 1 MG/ML 2 ML SDV ONE (10:37)
[2020-02-05] MEDS ORDERED: Propofol 200 MG/20 ML SDV ONE (10:37)
[2020-02-05] MEDS ORDERED: Ketorolac 30 MG/ML SDV ONE (10:37)
[2020-02-05] MEDS ORDERED: Rocuronium Bromide 50 MG/5 ML Syringe ONE ×3 (10:37→18:22)
[2020-02-05] MEDS ORDERED: fentaNYL 100 MCG/2 ML SDV ONE ×2 (10:37→16:54)
[2020-02-05] MEDS ORDERED: Lidocaine 2% 5 ML SDV ONE (10:37)
[2020-02-05] MEDS ORDERED: Ketamine 500 mg/10 ML MDV ONE (10:38)
[2020-02-05] MEDS ORDERED: HYDROmorphone 2 MG/ML Syringe ONE (10:38)
--- NOTE | 2020-02-05 12:34 | PCM.PREANE ---
Preanesthetic Assessment - Anesthesia/Transfusion/Family Hx Anesthesia History: Prior Anesthesia Without Reaction Family History of Anesthesia Reaction: No - Review of Systems General: No Symptoms Pulmonary: No Symptoms Cardiovascular: No Symptoms Gastrointestinal: Abdominal Pain Neurological: No Symptoms Other: Reports: None - Physical Assessment NPO Status Date: 02/04/20 Vital Signs: Last Vital Signs Temp 98.1 F 02/05/20 11:28 Pulse 61 02/05/20 11:28 Resp 22 H 02/05/20 11:28 BP 148/90 H 02/05/20 11:28 Pulse Ox 91 L 02/05/20 11:28 Height: 5 ft 10 in Weight: 266.9 kg ASA Class: 2 Mental Status: Alert & Oriented x3 Airway Class: Mallampati = 2 Dentition: Reports: Normal Dentition ROM/Head Extension: Full Lungs: Clear to Auscultation, Normal Respiratory Effort Cardiovascular: Regular Rate, Regular Rhythm - Lab Values: Laboratory Last Values WBC 9.30 K/uL (4.0-11.0) 02/05/20 05:50 RBC 4.84 M/uL (4.50-5.90) 02/05/20 05:50 Hgb 13.8 g/dL (13.0-17.0) 02/05/20 05:50 Hct 42.6 % (38.0-50.0) 02/05/20 05:50 MCV 88.0 fL (80.0-98.0) 02/05/20 05:50 MCH 28.5 pg (27.0-32.0) 02/05/20 05:50 MCHC 32.4 g/dL (31.0-37.0) 02/05/20 05:50 RDW Std Deviation 41.0 fl (28.0-62.0) 02/05/20 05:50 RDW Coeff of Harris 13 % (11.0-15.0) 02/05/20 05:50 Plt Count 257 K/uL (150-400) 02/05/20 05:50 MPV 10.00 fL (7.40-12.00) 02/05/20 05:50 Neut % (Auto) 65.2 % (48.0-80.0) 02/05/20 05:50 Lymph % (Auto) 23.4 % (16.0-40.0) 02/05/20 05:50 [place] % (Auto) 10.2 % (0.0-15.0) 02/05/20 05:50 Eos % (Auto) 1.0 % (0.0-7.0) 02/05/20 05:50 Baso % (Auto) 0.2 % (0.0-1.5) 02/05/20 05:50 Neut # (Auto) 6.1 K/uL (1.4-5.7) H 02/05/20 05:50 Lymph # (Auto) 2.2 K/uL (0.6-2.4) 02/05/20 05:50 [place] # (Auto) 1.0 K/uL (0.0-0.8) H 02/05/20 05:50 Eos # (Auto) 0.1 K/uL (0.0-0.7) 02/05/20 05:50 Baso # (Auto) 0.0 K/uL (0.0-0.1) 02/05/20 05:50 Nucleated RBC % 0.0 /100WBC 02/05/20 05:50 Nucleated RBCs # 0 K/uL 02/05/20 05:50 Sodium 140 mmol/L (136-148) 02/05/20 05:50 Potassium 3.6 mmol/L (3.5-5.1) 02/05/20 05:50 Chloride 104 mmol/L (98-107) 02/05/20 05:50 Carbon Dioxide 28.1 mmol/L (21.0-32.0) 02/05/20 05:50 BUN 7 mg/dL (7.0-18.0) 02/05/20 05:50 Creatinine 1.0 mg/dL (0.8-1.3) 02/05/20 05:50 Est Cr Clr Drug Dosing 95.31 mL/min 02/05/20 05:50 Estimated GFR (MDRD) > 60.0 ml/min 02/05/20 05:50 Glucose 100 mg/dL (74-106) 02/05/20 05:50 Hemoglobin A1c 6.2 % (4.5-6.2) 02/04/20 17:40 Calcium 8.7 mg/dL (8.5-10.1) 02/05/20 05:50 Total Bilirubin 0.7 mg/dL (0.2-1.0) 02/05/20 05:50 AST 33 IU/L (15-37) 02/05/20 05:50 ALT 87 IU/L (14-63) H 02/05/20 05:50 Alkaline Phosphatase 57 U/L (46-116) 02/05/20 05:50 Troponin I < 0.050 ng/mL (0.000-0.056) 02/04/20 17:40 Total Protein 6.9 g/dL (6.4-8.2) 02/05/20 05:50 Albumin 3.4 g/dL (3.4-5.0) 02/05/20 05:50 Globulin 3.5 g/dL (2.6-4.0) 02/05/20 05:50 Albumin/Globulin Ratio 1.0 (0.9-1.6) 02/05/20 05:50 Lipase 89 U/L (73-393) 02/04/20 17:40 Urine Color YELLOW 02/04/20 00:00 Urine Appearance CLEAR 02/04/20 00:00 Urine pH 5.5 (5.0-8.0) 02/04/20 00:00 Ur Specific Jud 1.025 (1.001-1.035) 02/04/20 00:00 Urine Protein NEGATIVE mg/dL (NEGATIVE) 02/04/20 00:00 Urine Glucose (UA) NEGATIVE mg/dL (NEGATIVE) 02/04/20 00:00 Urine Ketones NEGATIVE mg/dL (NEGATIVE) 02/04/20 00:00 Urine Occult Blood SMALL (NEGATIVE) H 02/04/20 00:00 Urine Nitrite NEGATIVE (NEGATIVE) 02/04/20 00:00 Urine Bilirubin NEGATIVE (NEGATIVE) 02/04/20 00:00 Urine Urobilinogen 0.2 EU/dL (<2.0) 02/04/20 00:00 Ur Leukocyte Esterase NEGATIVE (NEGATIVE) 02/04/20 00:00 Urine RBC 0-2 (0-2/HPF) 02/04/20 00:00 Urine WBC 0-1 (0-5/HPF) 02/04/20 00:00 Ur Epithelial Cells RARE (NONE-FEW) 02/04/20 00:00 Urine Bacteria RARE (NEGATIVE) 02/04/20 00:00 SARS-CoV-2 RNA (PANCHO) NEGATIVE (NEGATIVE) 02/04/20 21:15 - Allergies Allergies/Adverse Reactions: Allergies Allergy/AdvReac Type Severity Reaction Status Date / Time No Known Allergies Allergy Verified 02/04/20 22:38 - Blood Blood Available: No - Anesthesia Plan Pre-Op Medication Ordered: None - Acknowledgements Anesthesia Type Planned: General Anesthesia Pt an Appropriate Candidate for the Planned Anesthesia: Yes Alternatives and Risks of Anesthesia Discussed w Pt/Guardian: Yes Pt/Guardian Understands and Agrees with Anesthesia Plan: Yes Additional Comments: PMH: obesity, intermittently hypertensive PLAN: get PreAnesthesia Questionnaire Cardiovascular History: Reports: None Respiratory History: Reports: None Gastrointestinal History: Reports: None Endocrine/Metabolic History: Reports: None - Infectious Disease History Infectious Disease History: Reports: Chicken Pox, Measles - Past Surgical History Other HEENT Surgeries/Procedures: wisdom teeth extraction Musculoskeletal Surgical History: Reports: ORIF, Other (See Below) - SUBSTANCE USE Tobacco Use Status *Q: Never Tobacco User Tobacco Use Within Last Twelve Months: No Second Hand Smoke Exposure: No Date of Last Drink: 02/01/20 Recreational Drug Use History: No - CURRENT (IN HOUSE) MEDS Current Meds: Current Medications Diphenhydramine HCl (Benadryl) 50 mg IVPUSH Q4H PRN PRN Reason: Itching Hydralazine HCl (Apresoline) 10 mg IVPUSH Q2H PRN PRN Reason: Hypertension Hydromorphone HCl (Dilaudid) 0.5 mg IVPUSH Q1H PRN PRN Reason: Pain (severe 7-10) Last Admin: 02/05/20 11:45 Dose: 0.5 mg Documented by: Lactated Ringer's (Ringers, Lactated) 1,000 mls @ 125 mls/hr IV ASDIRECTED [facility] Last Admin: 02/05/20 06:47 Dose: 75 mls/hr Documented by: Piperacillin Sod/Tazobactam (Sod 3.375 gm/ Sodium Chloride) 50 mls @ 100 mls/hr IV Q6H [facility] Last Admin: 02/05/20 09:38 Dose: 100 mls/hr Documented by: Ondansetron HCl (Zofran) 4 mg IVPUSH Q6H PRN PRN Reason: Nausea/Vomiting Last Admin: 02/05/20 04:13 Dose: 4 mg Documented by: Oxycodone/Acetaminophen (Percocet 325-5 Mg) 2 tab PO Q4H PRN PRN Reason: Pain (moderate 4-6) Scopolamine (Transderm-Scop) 1.5 mg TRDERM Q72H [facility] Last Admin: 02/05/20 07:53 Dose: 1.5 mg Documented by: Sodium Chloride (Saline Flush) 10 ml FLUSH ASDIRECTED PRN PRN Reason: Keep Vein Open Last Admin: 02/04/20 18:50 Dose: 10 ml Documented by: Sodium Chloride (Saline Flush) 2.5 ml FLUSH ASDIRECTED PRN PRN Reason: Keep Vein Open Last Admin: 02/04/20 18:49 Dose: 2.5 ml Documented by: Sodium Chloride (Saline Flush) 10 ml FLUSH ASDIRECTED PRN PRN Reason: Keep Vein Open Sodium Chloride (Saline Flush) 2.5 ml FLUSH ASDIRECTED PRN PRN Reason: Keep Vein Open Sodium Chloride (Normal Saline) 10 ml IV ASDIRECTED PRN PRN Reason: IV Use Discontinued Medications Fentanyl (Fentanyl) 100 mcg IVPUSH ONETIME ONE Stop: 02/04/20 18:39 Last Admin: 02/04/20 18:46 Dose: 100 mcg Documented by: Fentanyl (Sublimaze) Confirm Administered Dose 100 mcg .ROUTE .STK-MED ONE Stop: 02/05/20 10:38 Hydromorphone HCl (Dilaudid) 1 mg IM ONETIME ONE Stop: 02/04/20 16:57 Last Admin: 02/04/20 17:19 Dose: 1 mg Documented by: Hydromorphone HCl (Dilaudid) Confirm Administered Dose 2 mg .ROUTE .STK-MED ONE Stop: 02/05/20 10:39 Lactated Ringer's (Ringers, Lactated) 1,000 mls @ 999 mls/hr IV .BOLUS ONE Stop: 02/04/20 17:57 Last Admin: 02/04/20 18:46 Dose: 999 mls/hr Documented by: Iopamidol (Isovue Multipack-370 (76%)) 100 ml IVPUSH ONETIME ONE Stop: 02/04/20 18:48 Last Admin: 02/04/20 18:47 Dose: 100 ml Documented by: Ketamine HCl (Ketalar) Confirm Administered Dose 500 mg .ROUTE .STK-MED ONE Stop: 02/05/20 10:39 Ketorolac Tromethamine (Toradol) 30 mg IVPUSH ONETIME ONE Stop: 02/04/20 21:44 Last Admin: 02/04/20 21:53 Dose: 30 mg Documented by: Ketorolac Tromethamine (Toradol) Confirm Administered Dose 30 mg .ROUTE .STK-MED ONE Stop: 02/05/20 10:38 Lidocaine (Xylocaine-Mpf 2%) Confirm Administered Dose 5 ml .ROUTE .STK-MED ONE Stop: 02/05/20 10:38 Midazolam HCl (Versed 1 Mg/Ml) Confirm Administered Dose 2 mg .ROUTE .STK-MED ONE Stop: 02/05/20 10:38 Morphine Sulfate (Morphine) 4 mg IVPUSH ONETIME ONE Stop: 02/04/20 20:49 Last Admin: 02/04/20 20:56 Dose: 4 mg Documented by: Ondansetron HCl (Zofran) 4 mg IM ONETIME ONE Stop: 02/04/20 16:57 Last Admin: 02/04/20 17:19 Dose: 4 mg Documented by: Ondansetron HCl (Zofran) Confirm Administered Dose 4 mg .ROUTE .STK-MED ONE Stop: 02/05/20 10:38 Propofol (Diprivan 20 Ml) Confirm Administered Dose 200 mg .ROUTE .STK-MED ONE Stop: 02/05/20 10:38 Rocuronium Caldwell (Rocuronium Caldwell) Confirm Administered Dose 50 mg .ROUTE .STK-MED ONE Stop: 02/05/20 10:38
[2020-02-05] MEDS ORDERED: Bupivacaine 0.5% 30 ML SDV ONE ×2 (14:17→16:40)
[2020-02-05] MEDS ORDERED: Sugammadex Sodium 200 MG/2 ML VIAL ONE ×2 (14:21→18:43)
[2020-02-05] MEDS ORDERED: ceFAZolin 1 GM Vial ONE (16:40)
--- NOTE | 2020-02-05 19:14 | PCM.OPNOTE ---
- General Post-Op/Procedure Note Date of Surgery/Procedure: 02/05/20 Operative Procedure(s): Laparoscopic converted to open cholecystectomy Findings: Severely inflamed gallbladder containing multiple stones with some impacted in the neck Pre Op Diagnosis: Acute cholecystitis Post-Op Diagnosis: Same Anesthesia Technique: General ET Tube Primary Surgeon: Rowena Canales Secondary Surgeon: Andrei So Pathology: gallbladder Fluid Replacement, Intraop: 2,500 EBL in mLs: 550 Surgical Drain/Tube Type: Mike Drain Condition: Stable Free Text/Narrative:: Intake & Output 02/05/20 02/05/20 02/05/20 06:59 14:59 22:59 Intake Total 1026 50 0 Output Total 800 1050 Balance 226 50 -1050
[2020-02-05 19:47] LABS: BLOOD UREA NITROGEN,BUN 7 mg/dL (7.0-18.0); CARBON DIOXIDE,CO2 28.7 mmol/L (21.0-32.0); CHLORIDE,CL 105 mmol/L (98-107); GLUCOSE RANDOM 145 mg/dL (74-106); POTASSIUM,K 4.1 mmol/L (3.5-5.1); SODIUM,NA 139 mmol/L (136-148)
--- NOTE | 2020-02-05 20:04 | PCM.POSTAN ---
POST ANESTHESIA ASSESSMENT - MENTAL STATUS Mental Status: Alert, Oriented - VITAL SIGNS Vital Signs: Last Vital Signs Temp 38.1 C 02/05/20 18:55 Pulse 71 02/05/20 19:59 Resp 17 02/05/20 19:59 BP 129/66 02/05/20 19:59 Pulse Ox 94 L 02/05/20 19:59 - RESPIRATORY Respiratory Status: Respiratory Rate WNL, Airway Patent, O2 Saturation Stable - CARDIOVASCULAR CV Status: Pulse Rate WNL, Blood Pressure Stable - GASTROINTESTINAL GI Status: No Symptoms Free Text/Narrative:: Denies nausea - PAIN Pain Score: 0 (Denies pain at rest. Reports pain only with coughing, and has been encouraged to splint.) - POST OP HYDRATION Hydration Status: Adequate & Stable - OBSERVATIONS Free Text/Narrative:: Alert and stable, clear to transport to Med Surg unit.
--- NOTE | 2020-02-05 20:54 | OR ---
SURGEON: ROEWNA MALIK MD DATE OF PROCEDURE: 02/05/2020 PREOPERATIVE DIAGNOSIS: Acute cholecystitis due to cholelithiasis, gallbladder hydrops. POSTOPERATIVE DIAGNOSIS: Same PROCEDURE PERFORMED: Laparoscopic converted to open cholecystectomy. PRIMARY SURGEON: Dr. Rowena Malik. SECONDARY SURGEON: Dr. Andrei So. ANESTHESIA: General endotracheal anesthesia. FLUIDS: 2500 mL crystalloid. ESTIMATED BLOOD LOSS: 550 mL. URINE OUTPUT: 800 mL. FINDINGS: Severely inflamed gallbladder containing multiple gallstones impacted at the neck of the gallbladder. COMPLICATIONS: None. INDICATIONS: The patient is a 44-year-old male who presented yesterday with severe right upper quadrant pain. A CT scan and ultrasound showed multiple gallstones within the gallbladder and 1 impacted at the neck of the gallbladder. The patient was admitted for IV fluids, IV antibiotics, pain control, and bowel rest. This morning, he feels slightly better, but continues to complain of severe pain. The patient's CBC and CMP appeared grossly normal. The decision was made to proceed to the operating room for a laparoscopic possible open cholecystectomy. I explained the pathophysiology of biliary disease to the patient. We discussed that I would attempt this laparoscopically, but convert to open should I be unable to perform it safely laparoscopically. I explained the risks including bleeding, infection, or damage to surrounding structures. The patient verbalized understanding and wishes to proceed. PROCEDURE IN DETAIL: The patient was brought into the OR and placed on the OR table in supine position. A time-out was completed verifying the patient's name, age, date of , allergies, and procedure to be performed. General endotracheal anesthesia was induced. The left arm was tucked to the patient's side and a Rodriguez catheter placed. The abdomen was then prepped and draped in usual standard fashion. I anesthetized the infraumbilical fold with 0.5% Marcaine plain. A 15 blade was used to make an incision along the infraumbilical fold. Cautery was used to dissect down to the level of subcutaneous fat. Using retractors, I dissected down to the level of the fascia. The fascia was elevated with Kochers and incised sharply with a curved mitchell scissors. The peritoneum was identified. This was elevated with hemostats and incised sharply with Metzenbaum scissors. Entry into the abdomen was palpated digitally. A 12- mm Lita trocar was placed into the abdomen and the abdomen was insufflated. A 5-mm 30-degree scope was inserted and I inspected the area underneath my initial trocar placement. No damage to surrounding structures was noted. The patient was then placed into reverse Trendelenburg position and airplaned slightly to the left. 5-mm trocars were placed in the following locations under direct visualization; one in the epigastric area, one in the right flank, and one 2 fingerbreadths below the right subcostal margin in the midclavicular line. I swept the omentum down into the lower quadrant and identified his gallbladder. This was distended and inflamed consistent with acute cholecystitis. I grasped the dome with an atraumatic grasper and gently elevated the gallbladder. There were omental adhesions along the body of the gallbladder. These were swept down using gentle blunt dissection. I was then able to elevate the gallbladder more cranially and expose the infundibulum. More omentum was adhered down along the infundibulum. Using suction and an endoscopic Kittner, I was able to sweep these away. The gallbladder was edematous and distended with signs of severe acute inflammation. A laparoscopic aspirating needle was brought into the field. I pierced through the body of the gallbladder and aspirated 60 mL of clear-appearing fluid consistent with hydrops. The fluid was sent for anaerobic culture and Gram stain. I then began dissection along my infundibulum. There was a large amount of inflammation around this area, so I used blunt dissection with a [place] and Kittner as well as a suction device to take down some of these adhesions. Using hook cautery, I scored along the medial and lateral aspects of the gallbladder body taking down these attachments to allow better mobilization. After an hour and a half, I was having difficulty identifying my critical view. I attempted a dome-down approach laparoscopically, however, the gallbladder wall was severely inflamed, and the more I attempted to take down the gallbladder, the more bleeding I encountered. The decision was made to convert to open. I called my partner, Dr. Andrei So into the case and he scrubbed in. I removed my 5-mm trocars as well as the 12-mm Lita trocar. The fascia at the infraumbilical port site was closed with interrupted 0 Vicryl sutures. A 10 blade was used to make an incision from the epigastric port site obliquely to the subcostal port site. This was approximately 2 fingerbreadths below the costal margin. Cautery was used to dissect down to the anterior abdominal wall. The anterior fascia and rectus muscle were opened using cautery. The posterior rectus sheath was elevated with Lindsey clamps and incised sharply using a 15 blade. The peritoneum was opened in similar fashion. The peritoneum was then opened medially and laterally using electrocautery while protecting our incision and the tissue beneath. Moistened laps were then placed into the abdomen and retractors inserted to provide exposure of the gallbladder. The gallbladder was grasped with clamps and elevated. We attempted to use a Kittner in order to take down the adhesions around the infundibulum, but we were unable to identify our structures. The decision was made to proceed instead in a dome-down manner. A Metzenbaum scissors was used to create a plane between the gallbladder and the gallbladder fossa. We continued our dissection from distal to proximal using a combination of blunt dissection as well as sharp dissection with cautery and a metzenbaum scissors. Once we got down to the infundibulum, the adhesions around the area were still thick. We proceeded with blunt dissection using a Kittner as well as the right angle. There was a small artery going directly into the gallbladder. This was triply clipped and ligated. We identified what we thought was our cystic duct. We attempted to clear away tissue around this to get better visualization. At one point, a rent was made along the posterior aspect of this area. Since we were still having difficulty identifying our structures, the decision was made to open the gallbladder and explore it from inside down to where we felt our cystic duct was. The gallbladder was opened along its dome and multiple small gallstones were removed. Once all the gallstones were removed, we used a [place] to explore where our cystic duct was. We could see that the gallbladder came down to where the rent in the tissue was. It was felt that the opening was made in the cystic duct itself. We palpated down this towards the midline. We felt that we could feel the common bile duct below us. The cystic duct did appear wide. This was too large to place 5mm clips across. The decision was made instead to staple across it with an endoscopic stapling device. A 45-mm green load of reggie was fired just below the rent in the tissue. This appeared to leave a small cuff of gallbladder. The gallbladder was removed and placed on the back table. The abdomen was irrigated with normal saline until it ran clear. Endoscopic Avitene and Surgicel were placed in the gallbladder bed. We held pressure for 2 minutes and reinspected our operative field. There was no evidence of bleeding. A 19- Martiniquais Mike drain was then brought out through the right lateral flank port site and placed within the gallbladder fossa. It was secured to the skin using a 2-0 silk suture. The peritoneum and posterior rectus sheath were then closed with running 0 Vicryl sutures. The anterior rectus sheath and oblique muscles were closed with interrupted 0 Ethibond sutures. An On-Q pump was then placed over the fascia. The overlying subcutaneous fat was closed with a running 3-0 Vicryl suture. The skin was closed with reggie. The infraumbilical port site skin was closed with reggie as well. Sterile dressings were applied. The patient tolerated the procedure well and was transferred to the PACU in stable condition and all counts were complete and correct at the end of the case. ISABELLA / [place] /[id number] JANEL
[2020-02-06] MEDS: Ketorolac 30 MG/ML SDV IVPUSH SCH ×5 (00:17→18:28)
[2020-02-06] MEDS: Piperacillin/Tazobactam 3.375 GM in Sodium Chloride 0.9% 50 ML IV SCH ×4 (03:27→21:41)
[2020-02-06] MEDS: Lactated Ringers 1,000 ML IV SCH ×2 (05:20→22:20)
[2020-02-06] MEDS: HYDROmorphone 2 MG/ML Syringe IVPUSH PRN ×2 (05:28→11:19)
[2020-02-06 06:09] LABS: BLOOD UREA NITROGEN,BUN 7 mg/dL (7.0-18.0); CARBON DIOXIDE,CO2 30.6 mmol/L (21.0-32.0); CHLORIDE,CL 105 mmol/L (98-107); GLUCOSE RANDOM 91 mg/dL (74-106); POTASSIUM,K 3.6 mmol/L (3.5-5.1); SODIUM,NA 140 mmol/L (136-148)
--- NOTE | 2020-02-06 07:37 | PCM48HPAN ---
Post Anesthesia Note - EVALUATION WITHIN 48HRS OF ANESTHETIC Vital Signs in Normal Range: Yes Patient Participated in Evaluation: Yes Respiratory Function Stable: Yes Airway Patent: Yes Cardiovascular Function Stable: Yes Hydration Status Stable: Yes (IV fluid) Pain Control Satisfactory: Yes (Reports satisfactory pain control with pain averaging 2-5/10) Nausea and Vomiting Control Satisfactory: Yes (Denies nausea) Mental Status Recovered: Yes Vital Signs: Last Vital Signs Temp 36.9 C 02/06/20 07:16 Pulse 70 02/06/20 07:16 Resp 20 02/06/20 07:16 BP 127/79 02/06/20 07:16 Pulse Ox 90 L 02/06/20 07:16
[2020-02-06] MEDS ORDERED: Acetaminophen/oxyCODONE 325-5 MG Tab PO PRN (10:51)
[2020-02-06] MEDS: Bisacodyl 5 MG Tab PO SCH (11:18)
[2020-02-06] MEDS: Enoxaparin 40 MG/0.4 ML Syringe SUBCUT SCH (12:28)
[2020-02-06] MEDS ORDERED: HYDROmorphone 1 MG/ML Syringe IV PRN (13:15)
--- NOTE | 2020-02-06 13:56 | PCM.SURGPN ---
- General Info Date of Service: 02/06/20 Date of Surgery/Procedure: 02/05/20 POD#: 1 Functional Status: Reports: Other (Patient complained of no sleep last night. NG was bothersome. Pain with coughing and moving. Otherwise well controlled. VSS overnight.) - Review of Systems General: Reports: Weakness HEENT: Reports: No Symptoms Pulmonary: Reports: No Symptoms Cardiovascular: Reports: No Symptoms Gastrointestinal: Reports: Abdominal Pain (along lateral aspect of incision ). Denies: Flatus Genitourinary: Reports: No Symptoms Musculoskeletal: Reports: No Symptoms Skin: Reports: No Symptoms - Patient Data Vitals - Most Recent: Last Vital Signs Temp 37.3 C 02/06/20 11:36 Pulse 72 02/06/20 11:36 Resp 18 02/06/20 11:36 BP 119/72 02/06/20 11:36 Pulse Ox 92 L 02/06/20 11:36 Weight - Most Recent: 266.9 kg I&O - Last 24 Hours: Intake & Output 02/05/20 02/06/20 02/06/20 22:59 06:59 14:59 Intake Total 5200 100 1100 Output Total 2780 650 25 Balance 2420 -550 1075 Lab Results Last 24 Hrs: Laboratory Results - last 24 hr 02/05/20 02/05/20 02/06/20 Range/Units 19:13 19:13 05:15 WBC 11.07 H 8.77 (4.0-11.0) K/uL RBC 4.65 4.50 (4.50-5.90) M/uL Hgb 13.3 12.8 L (13.0-17.0) g/dL Hct 41.2 39.8 (38.0-50.0) % MCV 88.6 88.4 (80.0-98.0) fL MCH 28.6 28.4 (27.0-32.0) pg MCHC 32.3 32.2 (31.0-37.0) g/dL RDW Std Deviation 41.7 42.0 (28.0-62.0) fl RDW Coeff of Harris 13 13 (11.0-15.0) % Plt Count 245 243 (150-400) K/uL MPV 9.60 9.80 (7.40-12.00) fL Nucleated RBC % 0.0 0.0 /100WBC Nucleated RBCs # 0 0 K/uL Sodium 139 (136-148) mmol/L Potassium 4.1 (3.5-5.1) mmol/L Chloride 105 (98-107) mmol/L Carbon Dioxide 28.7 (21.0-32.0) mmol/L BUN 7 (7.0-18.0) mg/dL Creatinine 1.1 (0.8-1.3) mg/dL Est Cr Clr Drug Dosing 86.64 mL/min Estimated GFR (MDRD) > 60.0 ml/min Glucose 145 H (74-106) mg/dL Calcium 8.2 L (8.5-10.1) mg/dL Total Bilirubin 0.9 (0.2-1.0) mg/dL AST 101 H (15-37) IU/L ALT 137 H (14-63) IU/L Alkaline Phosphatase 50 (46-116) U/L Total Protein 6.4 (6.4-8.2) g/dL Albumin 3.1 L (3.4-5.0) g/dL Globulin 3.3 (2.6-4.0) g/dL Albumin/Globulin Ratio 0.9 (0.9-1.6) 02/06/20 Range/Units 05:15 WBC (4.0-11.0) K/uL RBC (4.50-5.90) M/uL Hgb (13.0-17.0) g/dL Hct (38.0-50.0) % MCV (80.0-98.0) fL MCH (27.0-32.0) pg MCHC (31.0-37.0) g/dL RDW Std Deviation (28.0-62.0) fl RDW Coeff of Harris (11.0-15.0) % Plt Count (150-400) K/uL MPV (7.40-12.00) fL Nucleated RBC % /100WBC Nucleated RBCs # K/uL Sodium 140 (136-148) mmol/L Potassium 3.6 (3.5-5.1) mmol/L Chloride 105 (98-107) mmol/L Carbon Dioxide 30.6 (21.0-32.0) mmol/L BUN 7 (7.0-18.0) mg/dL Creatinine 1.0 (0.8-1.3) mg/dL Est Cr Clr Drug Dosing 95.31 mL/min Estimated GFR (MDRD) > 60.0 ml/min Glucose 91 (74-106) mg/dL Calcium 8.2 L (8.5-10.1) mg/dL Total Bilirubin 1.2 H (0.2-1.0) mg/dL AST 67 H (15-37) IU/L ALT 117 H (14-63) IU/L Alkaline Phosphatase 50 (46-116) U/L Total Protein 6.3 L (6.4-8.2) g/dL Albumin 2.9 L (3.4-5.0) g/dL Globulin 3.4 (2.6-4.0) g/dL Albumin/Globulin Ratio 0.9 (0.9-1.6) Med Orders - Current: Current Medications Bisacodyl (Dulcolax) 5 mg PO DAILY PENDING SALE TO [facility] Last Admin: 02/06/20 11:18 Dose: 5 mg Documented by: Cyclobenzaprine HCl (Flexeril) 5 mg PO TID PENDING SALE TO [facility] Diazepam (Valium) 1 mg IVPUSH Q2H PRN PRN Reason: Muscle Spasm Diphenhydramine HCl (Benadryl) 50 mg IVPUSH Q4H PRN PRN Reason: Itching Enoxaparin Sodium (Lovenox) 40 mg SUBCUT DAILY@1200 PENDING SALE TO [facility] Last Admin: 02/06/20 12:28 Dose: 40 mg Documented by: Hydralazine HCl (Apresoline) 10 mg IVPUSH Q2H PRN PRN Reason: Hypertension Hydromorphone HCl (Dilaudid) 0.5 mg IV Q1H PRN PRN Reason: Pain (severe 7-10) Lactated Ringer's (Ringers, Lactated) 1,000 mls @ 125 mls/hr IV ASDIRECTED PENDING SALE TO [facility] Last Admin: 02/06/20 05:20 Dose: 125 mls/hr Documented by: Piperacillin Sod/Tazobactam (Sod 3.375 gm/ Sodium Chloride) 50 mls @ 100 mls/hr IV Q6H PENDING SALE TO [facility] Last Admin: 02/06/20 10:21 Dose: 100 mls/hr Documented by: Ketorolac Tromethamine (Toradol) 30 mg IVPUSH Q6H PENDING SALE TO [facility] Stop: 02/10/20 12:00 Last Admin: 02/06/20 12:28 Dose: 30 mg Documented by: Ondansetron HCl (Zofran) 4 mg IVPUSH Q6H PRN PRN Reason: Nausea/Vomiting Last Admin: 02/05/20 04:13 Dose: 4 mg Documented by: Oxycodone/Acetaminophen (Percocet 325-5 Mg) 2 tab PO Q4H PRN PRN Reason: Pain (severe 7-10) Polyethylene Glycol (Miralax) 17 gm PO DAILY PENDING SALE TO [facility] Scopolamine (Transderm-Scop) 1.5 mg TRDERM Q72H PENDING SALE TO [facility] Last Admin: 02/05/20 07:53 Dose: 1.5 mg Documented by: Sodium Chloride (Saline Flush) 10 ml FLUSH ASDIRECTED PRN PRN Reason: Keep Vein Open Last Admin: 02/04/20 18:50 Dose: 10 ml Documented by: Sodium Chloride (Saline Flush) 2.5 ml FLUSH ASDIRECTED PRN PRN Reason: Keep Vein Open Last Admin: 02/04/20 18:49 Dose: 2.5 ml Documented by: Discontinued Medications Bupivacaine HCl (Marcaine 0.5%) Confirm Administered Dose 30 ml .ROUTE .STK-MED ONE Stop: 02/05/20 14:18 Bupivacaine HCl (Marcaine 0.5%) Confirm Administered Dose 120 ml .ROUTE .STK-MED ONE Stop: 02/05/20 16:41 Cefazolin Sodium (Ancef) Confirm Administered Dose 1 gm .ROUTE .STK-MED ONE Stop: 02/05/20 16:41 Fentanyl (Fentanyl) 100 mcg IVPUSH ONETIME ONE Stop: 02/04/20 18:39 Last Admin: 02/04/20 18:46 Dose: 100 mcg Documented by: Fentanyl (Sublimaze) Confirm Administered Dose 100 mcg .ROUTE .STK-MED ONE Stop: 02/05/20 10:38 Fentanyl (Sublimaze) Confirm Administered Dose 100 mcg .ROUTE .STK-MED ONE Stop: 02/05/20 16:55 Hydromorphone HCl (Dilaudid) 1 mg IM ONETIME ONE Stop: 02/04/20 16:57 Last Admin: 02/04/20 17:19 Dose: 1 mg Documented by: Hydromorphone HCl (Dilaudid) 0.5 mg IVPUSH Q1H PRN PRN Reason: Pain (severe 7-10) Last Admin: 02/06/20 11:19 Dose: 0.5 mg Documented by: Hydromorphone HCl (Dilaudid) Confirm Administered Dose 2 mg .ROUTE .STK-MED ONE Stop: 02/05/20 10:39 Lactated Ringer's (Ringers, Lactated) 1,000 mls @ 999 mls/hr IV .BOLUS ONE Stop: 02/04/20 17:57 Last Admin: 02/04/20 18:46 Dose: 999 mls/hr Documented by: Iopamidol (Isovue Multipack-370 (76%)) 100 ml IVPUSH ONETIME ONE Stop: 02/04/20 18:48 Last Admin: 02/04/20 18:47 Dose: 100 ml Documented by: Ketamine HCl (Ketalar) Confirm Administered Dose 500 mg .ROUTE .STK-MED ONE Stop: 02/05/20 10:39 Ketorolac Tromethamine (Toradol) 30 mg IVPUSH ONETIME ONE Stop: 02/04/20 21:44 Last Admin: 02/04/20 21:53 Dose: 30 mg Documented by: Ketorolac Tromethamine (Toradol) Confirm Administered Dose 30 mg .ROUTE .STK-MED ONE Stop: 02/05/20 10:38 Lidocaine (Xylocaine-Mpf 2%) Confirm Administered Dose 5 ml .ROUTE .STK-MED ONE Stop: 02/05/20 10:38 Midazolam HCl (Versed 1 Mg/Ml) Confirm Administered Dose 2 mg .ROUTE .STK-MED ONE Stop: 02/05/20 10:38 Morphine Sulfate (Morphine) 4 mg IVPUSH ONETIME ONE Stop: 02/04/20 20:49 Last Admin: 02/04/20 20:56 Dose: 4 mg Documented by: Ondansetron HCl (Zofran) 4 mg IM ONETIME ONE Stop: 02/04/20 16:57 Last Admin: 02/04/20 17:19 Dose: 4 mg Documented by: Ondansetron HCl (Zofran) Confirm Administered Dose 4 mg .ROUTE .STK-MED ONE Stop: 02/05/20 10:38 Oxycodone/Acetaminophen (Percocet 325-5 Mg) 2 tab PO Q4H PRN PRN Reason: Pain (moderate 4-6) Propofol (Diprivan 20 Ml) Confirm Administered Dose 200 mg .ROUTE .STK-MED ONE Stop: 02/05/20 10:38 Rocuronium [place] (Rocuronium [place]) Confirm Administered Dose 50 mg .ROUTE .STK-MED ONE Stop: 02/05/20 10:38 Rocuronium [place] (Rocuronium [place]) Confirm Administered Dose 50 mg .ROUTE .STK-MED ONE Stop: 02/05/20 16:32 Rocuronium [place] (Rocuronium [place]) Confirm Administered Dose 50 mg .ROUTE .STK-MED ONE Stop: 02/05/20 18:23 Sodium Chloride (Saline Flush) 10 ml FLUSH ASDIRECTED PRN PRN Reason: Keep Vein Open Sodium Chloride (Saline Flush) 2.5 ml FLUSH ASDIRECTED PRN PRN Reason: Keep Vein Open Sodium Chloride (Normal Saline) 10 ml IV ASDIRECTED PRN PRN Reason: IV Use Sugammadex Sodium (Bridion) Confirm Administered Dose 0 mg .ROUTE .STK-MED ONE Stop: 02/05/20 14:22 Sugammadex Sodium (Bridion) Confirm Administered Dose 200 mg .ROUTE .STK-MED ONE Stop: 02/05/20 18:44 - Exam Wound/Incisions: Dressing Dry and Intact Quality Assessment: Supplemental Oxygen General: Alert, Mild Distress HEENT: Pupils Equal, Pupils Reactive Lungs: Clear to Auscultation, Normal Respiratory Effort Cardiovascular: Regular Rate, Regular Rhythm GI/Abdominal Exam: Soft, Non-Tender (in every area of abdomen other the RUQ where incision is. ), Distended (mild) Extremities: Normal Inspection Skin: Warm, Dry, Intact Neurological: No New Focal Deficit Psy/Mental Status: Alert, Normal Affect, Normal Mood Sepsis Event Note - Evaluation Sepsis Screening Result: No Definite Risk - Focused Exam Vital Signs: Vital Signs Temp Pulse Resp BP Pulse Ox 02/06/20 11:36 37.3 C 72 18 119/72 92 L 02/06/20 07:16 36.9 C 70 20 127/79 90 L 02/06/20 04:00 37.3 C 69 20 147/84 H 97 - Problem List & Annotations (1) Acute cholecystitis due to biliary calculus SNOMED Code(s): 66637784070233 Code(s): K80.00 - CALCULUS OF GALLBLADDER W ACUTE CHOLECYST W/O OBSTRUCTION Status: Acute Current Visit: Yes - Problem List Review Problem List Initiated/Reviewed/Updated: Yes - My Orders Last 24 Hours: Active Orders 24 hr Category Date Time Status Patient Status [ADT] Routine ADT 02/05/20 18:53 Active Antiembolic Devices [RC] .Routine Care 02/06/20 10:50 Active Communication Order [RC] PER UNIT ROUTINE Care 02/06/20 09:06 Active Oxygen Therapy Adult [Oxygen Therapy, ED] [RC] Care 02/05/20 19:30 Active ASDIRECTED Oxygen Therapy [RC] PRN Care 02/05/20 18:56 Active Up With Assistance [RC] ASDIRECTED Care 02/05/20 18:56 Active VTE/DVT Education [RC] PER UNIT ROUTINE Care 02/06/20 10:50 Active Vital Signs [RC] PER UNIT ROUTINE Care 02/05/20 18:56 Active Clear Liquid Diet [DIET] Diet 02/06/20 Lunch Active ANAEROBIC CULTURE Routine Lab 02/05/20 15:58 Received CBC W/O DIFF,HEMOGRAM [HEME] AM Lab 02/07/20 05:11 Ordered CBC W/O DIFF,HEMOGRAM [HEME] AM Lab 02/08/20 05:11 Ordered CMP [COMPREHENSIVE METABOLIC PN,CMP] [CHEM] AM Lab 02/07/20 05:11 Ordered CMP [COMPREHENSIVE METABOLIC PN,CMP] [CHEM] AM Lab 02/08/20 05:11 Ordered CMP [COMPREHENSIVE METABOLIC PN,CMP] [CHEM] Routine Lab 02/06/20 13:45 Ordered CULTURE BODY FLUID + SMEAR [RM] Routine Lab 02/05/20 15:58 Received GRAM STAIN [RM] Routine Lab 02/05/20 15:58 Received Acetaminophen/oxyCODONE [Percocet 325-5 MG] Med 02/06/20 10:51 Active 2 tab PO Q4H PRN Cyclobenzaprine [Flexeril] Med 02/06/20 14:00 Active 5 mg PO TID Enoxaparin [Lovenox] Med 02/06/20 12:00 Active 40 mg SUBCUT DAILY@1200 HYDROmorphone [Dilaudid] Med 02/06/20 13:15 Active 0.5 mg IV Q1H PRN Ketorolac [Toradol] Med 02/05/20 19:00 Active 30 mg IVPUSH Q6H bisacodyL [Dulcolax] Med 02/06/20 11:00 Active 5 mg PO DAILY diazePAM [Valium] Med 02/05/20 19:01 Active 1 mg IVPUSH Q2H PRN polyethylene glycoL 3350 [MiraLAX] Med 02/07/20 09:00 Active 17 gm PO DAILY Abdominal Binder [OM.PC] Per Unit Routine Oth 02/05/20 18:57 Ordered Medication Orders Bisacodyl (Dulcolax) 5 mg PO DAILY PENDING SALE TO [facility] Last Admin: 02/06/20 11:18 Dose: 5 mg Documented by: SHAYNE Cosigned by: RACHEL Cyclobenzaprine HCl (Flexeril) 5 mg PO TID PENDING SALE TO [facility] Diazepam (Valium) 1 mg IVPUSH Q2H PRN PRN Reason: Muscle Spasm Diphenhydramine HCl (Benadryl) 50 mg IVPUSH Q4H PRN PRN Reason: Itching Enoxaparin Sodium (Lovenox) 40 mg SUBCUT DAILY@1200 PENDING SALE TO [facility] Last Admin: 02/06/20 12:28 Dose: 40 mg Documented by: BEATRIS Hydralazine HCl (Apresoline) 10 mg IVPUSH Q2H PRN PRN Reason: Hypertension Hydromorphone HCl (Dilaudid) 0.5 mg IV Q1H PRN PRN Reason: Pain (severe 7-10) Lactated Ringer's (Ringers, Lactated) 1,000 mls @ 125 mls/hr IV ASDIRECTED PENDING SALE TO [facility] Last Admin: 02/06/20 05:20 Dose: 125 mls/hr Documented by: Infusion: 02/06/20 04:26 Dose: 125 mls/hr Documented by: Admin: 02/05/20 20:26 Dose: 125 mls/hr Documented by: Infusion: 02/05/20 20:07 Dose: 75 mls/hr Documented by: Admin: 02/05/20 06:47 Dose: 75 mls/hr Documented by: Infusion: 02/05/20 06:47 Dose: 125 mls/hr Documented by: Admin: 02/04/20 21:02 Dose: 75 mls/hr Documented by: BRUNSAM Piperacillin Sod/Tazobactam (Sod 3.375 gm/ Sodium Chloride) 50 mls @ 100 mls/hr IV Q6H PENDING SALE TO [facility] Last Admin: 02/06/20 10:21 Dose: 100 mls/hr Documented by: Infusion: 02/06/20 03:57 Dose: 100 mls/hr Documented by: Admin: 02/06/20 03:27 Dose: 100 mls/hr Documented by: Infusion: 02/05/20 22:37 Dose: 100 mls/hr Documented by: Admin: 02/05/20 22:07 Dose: 100 mls/hr Documented by: Admin: 02/05/20 15:22 Dose: Not Given Documented by: Infusion: 02/05/20 10:08 Dose: 100 mls/hr Documented by: Admin: 02/05/20 09:38 Dose: 100 mls/hr Documented by: Infusion: 02/05/20 04:13 Dose: 100 mls/hr Documented by: Admin: 02/05/20 03:43 Dose: 100 mls/hr Documented by: Infusion: 02/04/20 23:10 Dose: 100 mls/hr Documented by: Admin: 02/04/20 22:40 Dose: 100 mls/hr Documented by: JEFFERY Ketorolac Tromethamine (Toradol) 30 mg IVPUSH Q6H PENDING SALE TO [facility] Stop: 02/10/20 12:00 Last Admin: 02/06/20 12:28 Dose: 30 mg Documented by: Admin: 02/06/20 06:36 Dose: 30 mg Documented by: Admin: 02/06/20 00:17 Dose: 30 mg Documented by: LOBITO Ondansetron HCl (Zofran) 4 mg IVPUSH Q6H PRN PRN Reason: Nausea/Vomiting Last Admin: 02/05/20 04:13 Dose: 4 mg Documented by: LOBITO Oxycodone/Acetaminophen (Percocet 325-5 Mg) 2 tab PO Q4H PRN PRN Reason: Pain (severe 7-10) Polyethylene Glycol (Miralax) 17 gm PO DAILY PENDING SALE TO [facility] Scopolamine (Transderm-Scop) 1.5 mg TRDERM Q72H PENDING SALE TO [facility] Last Admin: 02/05/20 07:53 Dose: 1.5 mg Documented by: LOBITO Sodium Chloride (Saline Flush) 10 ml FLUSH ASDIRECTED PRN PRN Reason: Keep Vein Open Last Admin: 02/04/20 18:50 Dose: 10 ml Documented by: ALYSSA Sodium Chloride (Saline Flush) 2.5 ml FLUSH ASDIRECTED PRN PRN Reason: Keep Vein Open Last Admin: 02/04/20 18:49 Dose: 2.5 ml Documented by: ALYSSA - Plan Plan (Free Text/Narrative):: Pain: IV dilaudid 0.5mg q 1hr prn severe pain, percocet 325-5mg 2 tab q 4hr prn moderate pain, scheduled toradol 30mg IV, scheduled flexeril 5mg TID. Prn valium for severe muscle spasms. CV: Vitals stable. No need for hypertensive medications. Pulm: Patient reluctant to use IS or get out of bed. Will encourage OOB activity and IS use. Currently sats in low 90s due to poor pulmonary toilet. GI: Clear liquids. Will continue this for today. Advance tomorrow if tolerated. Continue IVF until taking adequate po. LR @125ml/hr. AST and ALT lower today. Bilirubin elevated at 1.2. Will continue to monitor this closely. Repeat CMP this afternoon and in am. Drain with serosanguinous output that is decreasing. No signs of bile in drain. Added Miralax and dulcolax today for bowel regiment. Renal: Rodriguez in place. Ok to remove once out of bed. BUN/Cr WNL. ID: WBC within normal limits. Continue IV antibiotics for today. Heme: Heme slightly decreased. Most likely postoperative and dilutional. Will continue to monitor with frequent labs. Px: Taking po so no need for GI px. Lovenox 40mg q24 for DVT px.
[2020-02-06] MEDS: Cyclobenzaprine 5 MG Tab PO SCH ×2 (14:07→21:44)
[2020-02-06 14:36] LABS: BLOOD UREA NITROGEN,BUN 7 mg/dL (7.0-18.0); CARBON DIOXIDE,CO2 30.9 mmol/L (21.0-32.0); CHLORIDE,CL 104 mmol/L (98-107); GLUCOSE RANDOM 113 mg/dL (74-106); POTASSIUM,K 3.6 mmol/L (3.5-5.1); SODIUM,NA 140 mmol/L (136-148)
[2020-02-07] MEDS: Ketorolac 30 MG/ML SDV IVPUSH SCH ×4 (01:14→18:46)
[2020-02-07] MEDS: Piperacillin/Tazobactam 3.375 GM in Sodium Chloride 0.9% 50 ML IV SCH (04:05)
[2020-02-07 06:21] LABS: BLOOD UREA NITROGEN,BUN 8 mg/dL (7.0-18.0); CARBON DIOXIDE,CO2 28.2 mmol/L (21.0-32.0); CHLORIDE,CL 104 mmol/L (98-107); GLUCOSE RANDOM 118 mg/dL (74-106); POTASSIUM,K 3.2 mmol/L (3.5-5.1); SODIUM,NA 140 mmol/L (136-148)
[2020-02-07] MEDS: Cyclobenzaprine 5 MG Tab PO SCH ×3 (06:34→22:52)
[2020-02-07] MEDS: Lactated Ringers 1,000 ML IV SCH (06:37)
--- NOTE | 2020-02-07 08:49 | PCM.SURGPN ---
- General Info Date of Service: 02/07/20 Date of Surgery/Procedure: 02/05/20 POD#: 2 Functional Status: Reports: Pain Controlled, Tolerating Diet, Ambulating, Urinating - Review of Systems General: Reports: Other (sweaty last night but felt hte room was warm. No fever) HEENT: Reports: No Symptoms Pulmonary: Reports: No Symptoms Cardiovascular: Reports: No Symptoms Gastrointestinal: Reports: No Symptoms Genitourinary: Reports: No Symptoms Musculoskeletal: Reports: No Symptoms - Patient Data Vitals - Most Recent: Last Vital Signs Temp 37.0 C 02/07/20 04:00 Pulse 74 02/07/20 04:00 Resp 18 02/07/20 04:00 BP 130/79 02/07/20 04:00 Pulse Ox 93 L 02/07/20 04:00 Weight - Most Recent: 266.9 kg I&O - Last 24 Hours: Intake & Output 02/06/20 02/07/20 02/07/20 22:59 06:59 14:59 Intake Total 800 480 Output Total 585 730 Balance 215 -250 Lab Results Last 24 Hrs: Laboratory Results - last 24 hr 02/06/20 02/07/20 02/07/20 Range/Units 13:50 05:48 05:48 WBC 7.82 (4.0-11.0) K/uL RBC 4.08 L (4.50-5.90) M/uL Hgb 11.7 L (13.0-17.0) g/dL Hct 36.5 L (38.0-50.0) % MCV 89.5 (80.0-98.0) fL MCH 28.7 (27.0-32.0) pg MCHC 32.1 (31.0-37.0) g/dL RDW Std Deviation 41.5 (28.0-62.0) fl RDW Coeff of Harris 13 (11.0-15.0) % Plt Count 219 (150-400) K/uL MPV 9.80 (7.40-12.00) fL Nucleated RBC % 0.0 /100WBC Nucleated RBCs # 0 K/uL Sodium 140 140 (136-148) mmol/L Potassium 3.6 3.2 L (3.5-5.1) mmol/L Chloride 104 104 (98-107) mmol/L Carbon Dioxide 30.9 28.2 (21.0-32.0) mmol/L BUN 7 8 (7.0-18.0) mg/dL Creatinine 1.0 1.0 (0.8-1.3) mg/dL Est Cr Clr Drug Dosing 95.31 95.31 mL/min Estimated GFR (MDRD) > 60.0 > 60.0 ml/min Glucose 113 H 118 H (74-106) mg/dL Calcium 8.1 L 8.1 L (8.5-10.1) mg/dL Total Bilirubin 1.1 H 1.3 H (0.2-1.0) mg/dL AST 50 H 82 H (15-37) IU/L ALT 101 H 136 H (14-63) IU/L Alkaline Phosphatase 45 L 56 (46-116) U/L Total Protein 6.3 L 5.9 L (6.4-8.2) g/dL Albumin 2.9 L 2.6 L (3.4-5.0) g/dL Globulin 3.4 3.3 (2.6-4.0) g/dL Albumin/Globulin Ratio 0.9 0.8 L (0.9-1.6) Med Orders - Current: Current Medications Bisacodyl (Dulcolax) 5 mg PO DAILY [facility] Last Admin: 02/06/20 11:18 Dose: 5 mg Documented by: Cyclobenzaprine HCl (Flexeril) 5 mg PO TID [facility] Last Admin: 02/07/20 06:34 Dose: 5 mg Documented by: Diazepam (Valium) 1 mg IVPUSH Q2H PRN PRN Reason: Muscle Spasm Diphenhydramine HCl (Benadryl) 50 mg IVPUSH Q4H PRN PRN Reason: Itching Enoxaparin Sodium (Lovenox) 40 mg SUBCUT DAILY@1200 [facility] Last Admin: 02/06/20 12:28 Dose: 40 mg Documented by: Hydralazine HCl (Apresoline) 10 mg IVPUSH Q2H PRN PRN Reason: Hypertension Hydromorphone HCl (Dilaudid) 0.5 mg IV Q1H PRN PRN Reason: Pain (severe 7-10) Ketorolac Tromethamine (Toradol) 30 mg IVPUSH Q6H [facility] Stop: 02/10/20 12:00 Last Admin: 02/07/20 06:34 Dose: 30 mg Documented by: Multivitamins/Minerals/Vitamin C (Tab-A-Joanna) 1 tab PO DAILY [facility] Ondansetron HCl (Zofran) 4 mg IVPUSH Q6H PRN PRN Reason: Nausea/Vomiting Last Admin: 02/05/20 04:13 Dose: 4 mg Documented by: Oxycodone/Acetaminophen (Percocet 325-5 Mg) 2 tab PO Q4H PRN PRN Reason: Pain (severe 7-10) Polyethylene Glycol (Miralax) 17 gm PO DAILY [facility] Scopolamine (Transderm-Scop) 1.5 mg TRDERM Q72H [facility] Last Admin: 02/05/20 07:53 Dose: 1.5 mg Documented by: Sodium Chloride (Saline Flush) 10 ml FLUSH ASDIRECTED PRN PRN Reason: Keep Vein Open Last Admin: 02/04/20 18:50 Dose: 10 ml Documented by: Sodium Chloride (Saline Flush) 2.5 ml FLUSH ASDIRECTED PRN PRN Reason: Keep Vein Open Last Admin: 02/04/20 18:49 Dose: 2.5 ml Documented by: Discontinued Medications Bupivacaine HCl (Marcaine 0.5%) Confirm Administered Dose 30 ml .ROUTE .STK-MED ONE Stop: 02/05/20 14:18 Bupivacaine HCl (Marcaine 0.5%) Confirm Administered Dose 120 ml .ROUTE .STK-MED ONE Stop: 02/05/20 16:41 Cefazolin Sodium (Ancef) Confirm Administered Dose 1 gm .ROUTE .STK-MED ONE Stop: 02/05/20 16:41 Fentanyl (Fentanyl) 100 mcg IVPUSH ONETIME ONE Stop: 02/04/20 18:39 Last Admin: 02/04/20 18:46 Dose: 100 mcg Documented by: Fentanyl (Sublimaze) Confirm Administered Dose 100 mcg .ROUTE .STK-MED ONE Stop: 02/05/20 10:38 Fentanyl (Sublimaze) Confirm Administered Dose 100 mcg .ROUTE .STK-MED ONE Stop: 02/05/20 16:55 Hydromorphone HCl (Dilaudid) 1 mg IM ONETIME ONE Stop: 02/04/20 16:57 Last Admin: 02/04/20 17:19 Dose: 1 mg Documented by: Hydromorphone HCl (Dilaudid) 0.5 mg IVPUSH Q1H PRN PRN Reason: Pain (severe 7-10) Last Admin: 02/06/20 11:19 Dose: 0.5 mg Documented by: Hydromorphone HCl (Dilaudid) Confirm Administered Dose 2 mg .ROUTE .STK-MED ONE Stop: 02/05/20 10:39 Lactated Ringer's (Ringers, Lactated) 1,000 mls @ 999 mls/hr IV .BOLUS ONE Stop: 02/04/20 17:57 Last Admin: 02/04/20 18:46 Dose: 999 mls/hr Documented by: Lactated Ringer's (Ringers, Lactated) 1,000 mls @ 125 mls/hr IV ASDIRECTED [facility] Last Admin: 02/07/20 06:37 Dose: 125 mls/hr Documented by: Piperacillin Sod/Tazobactam (Sod 3.375 gm/ Sodium Chloride) 50 mls @ 100 mls/hr IV Q6H [facility] Last Admin: 02/07/20 04:05 Dose: 100 mls/hr Documented by: Iopamidol (Isovue Multipack-370 (76%)) 100 ml IVPUSH ONETIME ONE Stop: 02/04/20 18:48 Last Admin: 02/04/20 18:47 Dose: 100 ml Documented by: Ketamine HCl (Ketalar) Confirm Administered Dose 500 mg .ROUTE .STK-MED ONE Stop: 02/05/20 10:39 Ketorolac Tromethamine (Toradol) 30 mg IVPUSH ONETIME ONE Stop: 02/04/20 21:44 Last Admin: 02/04/20 21:53 Dose: 30 mg Documented by: Ketorolac Tromethamine (Toradol) Confirm Administered Dose 30 mg .ROUTE .STK-MED ONE Stop: 02/05/20 10:38 Lidocaine (Xylocaine-Mpf 2%) Confirm Administered Dose 5 ml .ROUTE .STK-MED ONE Stop: 02/05/20 10:38 Midazolam HCl (Versed 1 Mg/Ml) Confirm Administered Dose 2 mg .ROUTE .STK-MED ONE Stop: 02/05/20 10:38 Morphine Sulfate (Morphine) 4 mg IVPUSH ONETIME ONE Stop: 02/04/20 20:49 Last Admin: 02/04/20 20:56 Dose: 4 mg Documented by: Ondansetron HCl (Zofran) 4 mg IM ONETIME ONE Stop: 02/04/20 16:57 Last Admin: 02/04/20 17:19 Dose: 4 mg Documented by: Ondansetron HCl (Zofran) Confirm Administered Dose 4 mg .ROUTE .STK-MED ONE Stop: 02/05/20 10:38 Oxycodone/Acetaminophen (Percocet 325-5 Mg) 2 tab PO Q4H PRN PRN Reason: Pain (moderate 4-6) Propofol (Diprivan 20 Ml) Confirm Administered Dose 200 mg .ROUTE .STK-MED ONE Stop: 02/05/20 10:38 Rocuronium Maxwell (Rocuronium Maxwell) Confirm Administered Dose 50 mg .ROUTE .STK-MED ONE Stop: 02/05/20 10:38 Rocuronium Maxwell (Rocuronium Maxwell) Confirm Administered Dose 50 mg .ROUTE .STK-MED ONE Stop: 02/05/20 16:32 Rocuronium Maxwell (Rocuronium Maxwell) Confirm Administered Dose 50 mg .ROUTE .STK-MED ONE Stop: 02/05/20 18:23 Sodium Chloride (Saline Flush) 10 ml FLUSH ASDIRECTED PRN PRN Reason: Keep Vein Open Sodium Chloride (Saline Flush) 2.5 ml FLUSH ASDIRECTED PRN PRN Reason: Keep Vein Open Sodium Chloride (Normal Saline) 10 ml IV ASDIRECTED PRN PRN Reason: IV Use Sugammadex Sodium (Bridion) Confirm Administered Dose 0 mg .ROUTE .STK-MED ONE Stop: 02/05/20 14:22 Sugammadex Sodium (Bridion) Confirm Administered Dose 200 mg .ROUTE .STK-MED ONE Stop: 02/05/20 18:44 - Exam Wound/Incisions: Dressing Dry and Intact, Other (Drain with serosanguinous output ) Quality Assessment: Supplemental Oxygen General: Alert, Oriented HEENT: Pupils Equal, Pupils Reactive Lungs: Normal Respiratory Effort Cardiovascular: Regular Rate GI/Abdominal Exam: Soft, Non-Tender, No Mass, Distended (mild distension ) Extremities: Normal Inspection Skin: Warm, Dry, Intact Neurological: No New Focal Deficit Psy/Mental Status: Alert, Normal Affect, Normal Mood Sepsis Event Note - Evaluation Sepsis Screening Result: No Definite Risk - Focused Exam Vital Signs: Vital Signs Temp Pulse Resp BP Pulse Ox 02/07/20 04:00 37.0 C 74 18 130/79 93 L 02/06/20 23:00 36.7 C 70 14 134/76 90 L - Problem List & Annotations (1) Acute cholecystitis due to biliary calculus SNOMED Code(s): 42440995055042 Code(s): K80.00 - CALCULUS OF GALLBLADDER W ACUTE CHOLECYST W/O OBSTRUCTION Status: Acute Current Visit: Yes - Problem List Review Problem List Initiated/Reviewed/Updated: Yes - My Orders Last 24 Hours: Active Orders 24 hr Category Date Time Status Antiembolic Devices [RC] .Routine Care 02/06/20 10:50 Active Communication Order [RC] PER UNIT ROUTINE Care 02/06/20 09:06 Active DC Rodriguez Catheter [Urinary Catheter Removal] [RC] PER Care 02/06/20 14:28 Active UNIT ROUTINE VTE/DVT Education [RC] PER UNIT ROUTINE Care 02/06/20 10:50 Active Regular Diet [DIET] Diet 02/07/20 Lunch Active CBC W/O DIFF,HEMOGRAM [HEME] AM Lab 02/08/20 05:11 Ordered CMP [COMPREHENSIVE METABOLIC PN,CMP] [CHEM] AM Lab 02/08/20 05:11 Ordered Acetaminophen/oxyCODONE [Percocet 325-5 MG] Med 02/06/20 10:51 Active 2 tab PO Q4H PRN Cyclobenzaprine [Flexeril] Med 02/06/20 14:00 Active 5 mg PO TID Enoxaparin [Lovenox] Med 02/06/20 12:00 Active 40 mg SUBCUT DAILY@1200 HYDROmorphone [Dilaudid] Med 02/06/20 13:15 Active 0.5 mg IV Q1H PRN Multivitamins [Tab-A-Joanna] Med 02/07/20 09:00 Active 1 tab PO DAILY bisacodyL [Dulcolax] Med 02/06/20 11:00 Active 5 mg PO DAILY polyethylene glycoL 3350 [MiraLAX] Med 02/07/20 09:00 Active 17 gm PO DAILY Medication Orders Bisacodyl (Dulcolax) 5 mg PO DAILY [facility] Last Admin: 02/06/20 11:18 Dose: 5 mg Documented by: SHAYNE Cosigned by: RACHEL Cyclobenzaprine HCl (Flexeril) 5 mg PO TID [facility] Last Admin: 02/07/20 06:34 Dose: 5 mg Documented by: Admin: 02/06/20 21:44 Dose: 5 mg Documented by: Admin: 02/06/20 14:07 Dose: 5 mg Documented by: BEATRIS Diazepam (Valium) 1 mg IVPUSH Q2H PRN PRN Reason: Muscle Spasm Diphenhydramine HCl (Benadryl) 50 mg IVPUSH Q4H PRN PRN Reason: Itching Enoxaparin Sodium (Lovenox) 40 mg SUBCUT DAILY@1200 [facility] Last Admin: 02/06/20 12:28 Dose: 40 mg Documented by: BEATRIS Hydralazine HCl (Apresoline) 10 mg IVPUSH Q2H PRN PRN Reason: Hypertension Hydromorphone HCl (Dilaudid) 0.5 mg IV Q1H PRN PRN Reason: Pain (severe 7-10) Ketorolac Tromethamine (Toradol) 30 mg IVPUSH Q6H [facility] Stop: 02/10/20 12:00 Last Admin: 02/07/20 06:34 Dose: 30 mg Documented by: Admin: 02/07/20 01:14 Dose: 30 mg Documented by: Admin: 02/06/20 18:28 Dose: 30 mg Documented by: Admin: 02/06/20 17:23 Dose: Not Given Documented by: Admin: 02/06/20 12:28 Dose: 30 mg Documented by: Admin: 02/06/20 06:36 Dose: 30 mg Documented by: Admin: 02/06/20 00:17 Dose: 30 mg Documented by: LOBITO Multivitamins/Minerals/Vitamin C (Tab-A-Joanna) 1 tab PO DAILY [facility] Ondansetron HCl (Zofran) 4 mg IVPUSH Q6H PRN PRN Reason: Nausea/Vomiting Last Admin: 02/05/20 04:13 Dose: 4 mg Documented by: LOBITO Oxycodone/Acetaminophen (Percocet 325-5 Mg) 2 tab PO Q4H PRN PRN Reason: Pain (severe 7-10) Polyethylene Glycol (Miralax) 17 gm PO DAILY [facility] Scopolamine (Transderm-Scop) 1.5 mg TRDERM Q72H [facility] Last Admin: 02/05/20 07:53 Dose: 1.5 mg Documented by: LOBITO Sodium Chloride (Saline Flush) 10 ml FLUSH ASDIRECTED PRN PRN Reason: Keep Vein Open Last Admin: 02/04/20 18:50 Dose: 10 ml Documented by: ALYSSA Sodium Chloride (Saline Flush) 2.5 ml FLUSH ASDIRECTED PRN PRN Reason: Keep Vein Open Last Admin: 02/04/20 18:49 Dose: 2.5 ml Documented by: ALYSSA - Plan Plan (Free Text/Narrative):: Pain: No change in pain medications today. Continue current regiment. CV: VSS. Pulm: Encourage out of bed activity and IS use. Sats decrease when patient is laying in bed. Should ambulate at least 3 times out of room today. GI: regular diet today. LFTs stable. Continue to monitor. D/C IVF. Renal: UOP adequate. BUN/Cr within normal limits. ID: D/C zosyn. Will switch to levaquin 750mg once daily Heme: Decreased again today but likely due to dilutional effect. Px: Lovenox, SCDs
[2020-02-07] MEDS: Levofloxacin 250 MG Tab PO SCH (09:22)
[2020-02-07] MEDS: Multivitamin Tab PO SCH (09:22)
[2020-02-07] MEDS: Polyethylene Glycol 3350 Powder 17 GM Packet PO SCH (09:23)
[2020-02-07] MEDS: Bisacodyl 5 MG Tab PO SCH (09:23)
[2020-02-07] MEDS: Enoxaparin 40 MG/0.4 ML Syringe SUBCUT SCH (12:30)
[2020-02-07] MEDS: Scopolamine 1.5 MG Transdermal Patch TRDERM SCH (22:53)
[2020-02-08] MEDS: Ketorolac 30 MG/ML SDV IVPUSH SCH ×3 (01:15→13:17)
[2020-02-08 05:28] LABS: BLOOD UREA NITROGEN,BUN 8 mg/dL (7.0-18.0); CARBON DIOXIDE,CO2 28.8 mmol/L (21.0-32.0); CHLORIDE,CL 107 mmol/L (98-107); GLUCOSE RANDOM 90 mg/dL (74-106); POTASSIUM,K 3.3 mmol/L (3.5-5.1); SODIUM,NA 141 mmol/L (136-148)
[2020-02-08] MEDS: Cyclobenzaprine 5 MG Tab PO SCH ×2 (06:36→13:48)
[2020-02-08] MEDS: Multivitamin Tab PO SCH (08:39)
[2020-02-08] MEDS: Polyethylene Glycol 3350 Powder 17 GM Packet PO SCH (08:40)
[2020-02-08] MEDS: Bisacodyl 5 MG Tab PO SCH (08:40)
[2020-02-08] MEDS: Levofloxacin 250 MG Tab PO SCH (08:43)
--- NOTE | 2020-02-08 10:48 | PCM.DCSUM1 ---
Discharge Summary - Hospital Course Free Text/Narrative:: Patient is a 44 year old male who presented to the ER with RUQ pain. He was found to have cholelithiasis with no clear evidence of cholecystitis. However, his pain was severe and he was admitted for close monitoring and pain control. His pain was improved the next day but not gone. He was taken to the OR for a laparoscopic cholecystectomy. He was found to have severe acute cholecystitis. This was converted to open due to an inability to achieve a critical view. The procedure was difficult but went well. The patient had a saenz and NG. He had minimal NG output and so the tube was pulled the next day. He remained stable. LFTs and bilirubin were slightly elevated but did come down during his stay. He was placed on IV zosyn then switched to oral levaquin. His diet was slowly advanced without difficulty. He was given a bowel regiment and has been passing flatus. His drain had decreasing output and was removed on POD #2. His incisions appear to be healing well with no issues. I scheduled toradol which gave him excellent pain control with minimal narcotic use. He was cleared for discharge. - Discharge Data Discharge Date: 02/08/20 Discharge Disposition: Home, Self-Care 01 Condition: Stable - Referral to Home Health Primary Care Physician: PCP None - Discharge Diagnosis/Problem(s) (1) Acute cholecystitis due to biliary calculus SNOMED Code(s): 13476233344860 ICD Code: K80.00 - CALCULUS OF GALLBLADDER W ACUTE CHOLECYST W/O OBSTRUCTION Status: Acute Current Visit: Yes - Patient Summary/Data Operative Procedure(s) Performed: Laparoscopic converted to open cholecystectomy - Patient Instructions Diet: Regular Diet as Tolerated, Drink 8-10+ Glasses/Day Activity: No Lifting Over 20 Pounds (for six weeks ), Rest and Relax Today Driving: Do Not Drive (for one week ) Showering/Bathing: May Shower, No Tub Bathing/Swimming (for 2 days ) Wound/Incision Care: Keep Operative Site/Wound Site Clean and Dry Notify Provider of: Fever, Increased Pain, Swelling and Redness, Drainage, Nausea and/or Vomiting - Discharge Plan *PRESCRIPTION DRUG MONITORING PROGRAM REVIEWED*: Yes *COPY OF PRESCRIPTION DRUG MONITORING REPORT IN PATIENT MT: Yes Prescriptions/Med Rec: bisacodyL [Dulcolax] 5 mg PO DAILY #7 tablet Cyclobenzaprine [Flexeril] 5 mg PO TID #21 tablet polyethylene glycoL 3350 [MiraLAX] 17 gm PO DAILY #7 packet Ketorolac [Toradol] 10 mg PO Q6H #20 tab Home Medications: Home Meds Cyclobenzaprine [Flexeril] 5 mg PO TID #21 tablet 02/08/20 [Rx] Ketorolac [Toradol] 10 mg PO Q6H #20 tab 02/08/20 [Rx] bisacodyL [Dulcolax] 5 mg PO DAILY #7 tablet 02/08/20 [Rx] polyethylene glycoL 3350 [MiraLAX] 17 gm PO DAILY #7 packet 02/08/20 [Rx] Patient Handouts: Biliary Colic, Adult Forms: ED Department Discharge Referrals: Dutch Baxter MD [Ordering Only Provider] - 02/19/20 2:30 pm Rowena Canales MD [Physician] - 02/14/20 8:30 am - Discharge Summary/Plan Comment DC Time >30 min.: Yes (40) - General Info Date of Service: 02/08/20 Functional Status: Reports: Pain Controlled, Tolerating Diet, Ambulating, Urinating - Review of Systems General: Reports: No Symptoms HEENT: Reports: No Symptoms Pulmonary: Reports: No Symptoms Cardiovascular: Reports: No Symptoms Gastrointestinal: Reports: No Symptoms, Flatus Genitourinary: Reports: No Symptoms Musculoskeletal: Reports: No Symptoms - Patient Data Vitals - Most Recent: Last Vital Signs Temp 36.8 C 02/08/20 07:24 Pulse 64 02/08/20 07:24 Resp 20 02/08/20 07:24 BP 145/80 H 02/08/20 07:24 Pulse Ox 92 L 02/08/20 07:24 Weight - Most Recent: 266.9 kg I&O - Last 24 hours: Intake & Output 02/07/20 02/08/20 02/08/20 22:59 06:59 14:59 Intake Total 640 640 Output Total 30 30 Balance 610 610 Lab Results - Last 24 hrs: Laboratory Results - last 24 hr 02/08/20 02/08/20 Range/Units 04:37 04:37 WBC 6.36 (4.0-11.0) K/uL RBC 4.00 L (4.50-5.90) M/uL Hgb 11.4 L (13.0-17.0) g/dL Hct 35.5 L (38.0-50.0) % MCV 88.8 (80.0-98.0) fL MCH 28.5 (27.0-32.0) pg MCHC 32.1 (31.0-37.0) g/dL RDW Std Deviation 41.3 (28.0-62.0) fl RDW Coeff of Harris 13 (11.0-15.0) % Plt Count 238 (150-400) K/uL MPV 9.90 (7.40-12.00) fL Nucleated RBC % 0.0 /100WBC Nucleated RBCs # 0 K/uL Sodium 141 (136-148) mmol/L Potassium 3.3 L (3.5-5.1) mmol/L Chloride 107 (98-107) mmol/L Carbon Dioxide 28.8 (21.0-32.0) mmol/L BUN 8 (7.0-18.0) mg/dL Creatinine 0.9 (0.8-1.3) mg/dL Est Cr Clr Drug Dosing 105.90 mL/min Estimated GFR (MDRD) > 60.0 ml/min Glucose 90 (74-106) mg/dL Calcium 8.2 L (8.5-10.1) mg/dL Total Bilirubin 0.5 (0.2-1.0) mg/dL AST 64 H (15-37) IU/L ALT 126 H (14-63) IU/L Alkaline Phosphatase 66 (46-116) U/L Total Protein 6.2 L (6.4-8.2) g/dL Albumin 2.6 L (3.4-5.0) g/dL Globulin 3.6 (2.6-4.0) g/dL Albumin/Globulin Ratio 0.7 L (0.9-1.6) DANILO Results - Last 24 hrs: Microbiology 02/05/20 15:58 Gram Stain - Final Gallbladder Fluid - Bile Body Fluid Culture - Final NO GROWTH AFTER 3 DAYS Med Orders - Current: Current Medications Bisacodyl (Dulcolax) 5 mg PO DAILY [facility] Last Admin: 02/08/20 08:40 Dose: 5 mg Documented by: Cyclobenzaprine HCl (Flexeril) 5 mg PO TID [facility] Last Admin: 02/08/20 06:36 Dose: 5 mg Documented by: Diazepam (Valium) 1 mg IVPUSH Q2H PRN PRN Reason: Muscle Spasm Diphenhydramine HCl (Benadryl) 50 mg IVPUSH Q4H PRN PRN Reason: Itching Enoxaparin Sodium (Lovenox) 40 mg SUBCUT DAILY@1200 [facility] Last Admin: 02/07/20 12:30 Dose: 40 mg Documented by: Hydralazine HCl (Apresoline) 10 mg IVPUSH Q2H PRN PRN Reason: Hypertension Hydromorphone HCl (Dilaudid) 0.5 mg IV Q1H PRN PRN Reason: Pain (severe 7-10) Ketorolac Tromethamine (Toradol) 30 mg IVPUSH Q6H [facility] Stop: 02/10/20 12:00 Last Admin: 02/08/20 06:35 Dose: 30 mg Documented by: Levofloxacin (Levaquin) 750 mg PO Q24H [facility] Last Admin: 02/08/20 08:43 Dose: 750 mg Documented by: Multivitamins/Minerals/Vitamin C (Tab-A-Joanna) 1 tab PO DAILY [facility] Last Admin: 02/08/20 08:39 Dose: 1 tab Documented by: Ondansetron HCl (Zofran) 4 mg IVPUSH Q6H PRN PRN Reason: Nausea/Vomiting Last Admin: 02/05/20 04:13 Dose: 4 mg Documented by: Oxycodone/Acetaminophen (Percocet 325-5 Mg) 2 tab PO Q4H PRN PRN Reason: Pain (severe 7-10) Polyethylene Glycol (Miralax) 17 gm PO DAILY [facility] Last Admin: 02/08/20 08:40 Dose: 17 gm Documented by: Scopolamine (Transderm-Scop) 1.5 mg TRDERM Q72H [facility] Last Admin: 02/07/20 22:53 Dose: Not Given Documented by: Sodium Chloride (Saline Flush) 10 ml FLUSH ASDIRECTED PRN PRN Reason: Keep Vein Open Last Admin: 02/04/20 18:50 Dose: 10 ml Documented by: Sodium Chloride (Saline Flush) 2.5 ml FLUSH ASDIRECTED PRN PRN Reason: Keep Vein Open Last Admin: 02/04/20 18:49 Dose: 2.5 ml Documented by: Discontinued Medications Bupivacaine HCl (Marcaine 0.5%) Confirm Administered Dose 30 ml .ROUTE .STK-MED ONE Stop: 02/05/20 14:18 Bupivacaine HCl (Marcaine 0.5%) Confirm Administered Dose 120 ml .ROUTE .STK-MED ONE Stop: 02/05/20 16:41 Cefazolin Sodium (Ancef) Confirm Administered Dose 1 gm .ROUTE .STK-MED ONE Stop: 02/05/20 16:41 Fentanyl (Fentanyl) 100 mcg IVPUSH ONETIME ONE Stop: 02/04/20 18:39 Last Admin: 02/04/20 18:46 Dose: 100 mcg Documented by: Fentanyl (Sublimaze) Confirm Administered Dose 100 mcg .ROUTE .STK-MED ONE Stop: 02/05/20 10:38 Fentanyl (Sublimaze) Confirm Administered Dose 100 mcg .ROUTE .STK-MED ONE Stop: 02/05/20 16:55 Hydromorphone HCl (Dilaudid) 1 mg IM ONETIME ONE Stop: 02/04/20 16:57 Last Admin: 02/04/20 17:19 Dose: 1 mg Documented by: Hydromorphone HCl (Dilaudid) 0.5 mg IVPUSH Q1H PRN PRN Reason: Pain (severe 7-10) Last Admin: 02/06/20 11:19 Dose: 0.5 mg Documented by: Hydromorphone HCl (Dilaudid) Confirm Administered Dose 2 mg .ROUTE .STK-MED ONE Stop: 02/05/20 10:39 Lactated Ringer's (Ringers, Lactated) 1,000 mls @ 999 mls/hr IV .BOLUS ONE Stop: 02/04/20 17:57 Last Admin: 02/04/20 18:46 Dose: 999 mls/hr Documented by: Lactated Ringer's (Ringers, Lactated) 1,000 mls @ 125 mls/hr IV ASDIRECTED [facility] Last Admin: 02/07/20 06:37 Dose: 125 mls/hr Documented by: Piperacillin Sod/Tazobactam (Sod 3.375 gm/ Sodium Chloride) 50 mls @ 100 mls/hr IV Q6H [facility] Last Admin: 02/07/20 04:05 Dose: 100 mls/hr Documented by: Iopamidol (Isovue Multipack-370 (76%)) 100 ml IVPUSH ONETIME ONE Stop: 02/04/20 18:48 Last Admin: 02/04/20 18:47 Dose: 100 ml Documented by: Ketamine HCl (Ketalar) Confirm Administered Dose 500 mg .ROUTE .STK-MED ONE Stop: 02/05/20 10:39 Ketorolac Tromethamine (Toradol) 30 mg IVPUSH ONETIME ONE Stop: 02/04/20 21:44 Last Admin: 02/04/20 21:53 Dose: 30 mg Documented by: Ketorolac Tromethamine (Toradol) Confirm Administered Dose 30 mg .ROUTE .STK-MED ONE Stop: 02/05/20 10:38 Lidocaine (Xylocaine-Mpf 2%) Confirm Administered Dose 5 ml .ROUTE .STK-MED ONE Stop: 02/05/20 10:38 Midazolam HCl (Versed 1 Mg/Ml) Confirm Administered Dose 2 mg .ROUTE .STK-MED ONE Stop: 02/05/20 10:38 Morphine Sulfate (Morphine) 4 mg IVPUSH ONETIME ONE Stop: 02/04/20 20:49 Last Admin: 02/04/20 20:56 Dose: 4 mg Documented by: Ondansetron HCl (Zofran) 4 mg IM ONETIME ONE Stop: 02/04/20 16:57 Last Admin: 02/04/20 17:19 Dose: 4 mg Documented by: Ondansetron HCl (Zofran) Confirm Administered Dose 4 mg .ROUTE .STK-MED ONE Stop: 02/05/20 10:38 Oxycodone/Acetaminophen (Percocet 325-5 Mg) 2 tab PO Q4H PRN PRN Reason: Pain (moderate 4-6) Propofol (Diprivan 20 Ml) Confirm Administered Dose 200 mg .ROUTE .STK-MED ONE Stop: 02/05/20 10:38 Rocuronium [place] (Rocuronium [place]) Confirm Administered Dose 50 mg .ROUTE .STK-MED ONE Stop: 02/05/20 10:38 Rocuronium [place] (Rocuronium [place]) Confirm Administered Dose 50 mg .ROUTE .STK-MED ONE Stop: 02/05/20 16:32 Rocuronium [place] (Rocuronium [place]) Confirm Administered Dose 50 mg .ROUTE .STK-MED ONE Stop: 02/05/20 18:23 Sodium Chloride (Saline Flush) 10 ml FLUSH ASDIRECTED PRN PRN Reason: Keep Vein Open Sodium Chloride (Saline Flush) 2.5 ml FLUSH ASDIRECTED PRN PRN Reason: Keep Vein Open Sodium Chloride (Normal Saline) 10 ml IV ASDIRECTED PRN PRN Reason: IV Use Sugammadex Sodium (Bridion) Confirm Administered Dose 0 mg .ROUTE .STK-MED ONE Stop: 02/05/20 14:22 Sugammadex Sodium (Bridion) Confirm Administered Dose 200 mg .ROUTE .STK-MED ONE Stop: 02/05/20 18:44 - Exam General: Reports: Alert, Oriented HEENT: Reports: Pupils Equal, Pupils Reactive Neck: Reports: Supple Lungs: Reports: Normal Respiratory Effort Cardiovascular: Reports: Regular Rate, Murmurs GI/Abdominal Exam: Soft, No Distention, No Mass Back Exam: Reports: Normal Inspection Extremities: Normal Inspection Skin: Reports: Warm, Dry, Intact Wound/Incisions: Reports: Healing Well, No Drainage
[2020-02-08] MEDS: Enoxaparin 40 MG/0.4 ML Syringe SUBCUT SCH (11:34)
== END 2020-02-08 15:55 | disposition home or self-care (01) | DRG 415 ==
LOC: MW.ED 15:30 → MW.MS 21:13 → OBSVTOIN 02-05 18:53 → MW.MS 02-05 19:34
PROVIDERS: ADMIT Surgery; ATTEND Surgery
PROC: 0FT40ZZ Resection of Gallbladder, Open Approach (ICD-10-PCS; principal; 2020-02-05)
PROC: 0FJ44ZZ Inspection of Gallbladder, Percutaneous Endoscopic Approach (ICD-10-PCS; 2020-02-05)
DX: K80.00 Calculus of gallbladder with acute cholecystitis without obstruction (principal); K82.1 Hydrops of gallbladder; Z53.31 Laparoscopic surgical procedure converted to open procedure; Z20.828 Contact with and (suspected) exposure to other viral communicable diseases
CPT/HCPCS: 36415 ×2; 47600; 74177; 76705; 80053 ×2; 81001; 83036; 83690; 84484; 85025 ×2; 87070; 87075; 87205; 87635; 88304; 96372; 96374; 96375; 96376; 99285; A9270; J0690; J1170 ×8; J1885 ×2; J2001; J2250; J2270; J2405 ×3; J2543 ×3; J2704; J3010 ×3; J3490 ×3; J7050 ×3; J7120 ×3; Q9967; 85027; J1650; U0002

== ENCOUNTER 2020-04-16 08:25 | Emergency (ER) | payer OTHER ==
[2020-04-16] MEDS ORDERED: Acetaminophen/HYDROcodone 325-5 MG Tab PO ONE ×2 (08:46→09:20)
[2020-04-16 09:17] LABS: BLOOD UREA NITROGEN,BUN 12 mg/dL (7.0-18.0); CARBON DIOXIDE,CO2 23.6 mmol/L (21.0-32.0); CHLORIDE,CL 104 mmol/L (98-107); GLUCOSE RANDOM 159 mg/dL (74-106); POTASSIUM,K 3.9 mmol/L (3.5-5.1); SODIUM,NA 141 mmol/L (136-148)
--- NOTE | 2020-04-16 09:36 | US ---
Indication: Right-sided testicular pain. Technique: Sonography of the scrotum and its contents was performed. Doppler was also performed to assess for hyperemia or torsion. Comparison: No Findings: The testes are normal in size and echogenicity. The right measures 4.5 x 3.2 x 2.3 centimeters and the left measures 4.9 x 2.9 x 2.2 centimeters. No testicular mass. Normal Doppler flow without evidence of torsion. The epididymis bilaterally appears normal without evidence of abnormal flow. No significant fluid. Normal scrotal skin thickening. No varicocele. Impression: Normal examination Dictated by Alek Carvajal MD @ Apr 16 2020 9:32AM Signed by Dr. Alek Carvajal @ Apr 16 2020 9:34AM
[2020-04-16] MEDS ORDERED: Ondansetron 4 MG/2 ML SDV IVPUSH ONE (09:40)
[2020-04-16] MEDS ORDERED: Ondansetron 4 MG/2 ML SDV ONE (09:41)
[2020-04-16] MEDS ORDERED: Morphine 4 MG/ML Syringe IVPUSH ONE (09:45)
--- NOTE | 2020-04-16 10:45 | CT ---
Indication: Right flank pain Technique: Volumetric multidetector CT images of the abdomen and pelvis were without the administration of intravenous contrast. Comparison: CT abdomen and pelvis February 04, 2020 Findings: There is basilar atelectasis versus scar. The liver again demonstrates extensive hepatic steatosis. There is questionable cholecystectomy interval cholecystectomy from comparison exam with apparent surgical clips near the gallbladder fossa. Within the gallbladder fossa there is demonstration of a somewhat ill-defined cystic structure which could represent a small peripherally calcified biloma versus a [place] gallbladder status post chronic inflammatory changes. There is no significant common biliary ductal dilatation or abrupt cut off. The spleen is normal in attenuation and size. The stomach and duodenum are grossly unremarkable. The pancreas is normal in attenuation without significant atrophy. The adrenal glands are unremarkable. There is right-sided hydronephrosis and hydroureter with demonstration of a 3.4 millimeter calculus in the distal right ureter just at the ureterovesicular junction. There is mild bilateral nonspecific perinephric stranding and nonobstructive calculi within the left collecting system. There is moderate stool seen throughout the colon with colonic diverticulosis. There is no evidence of diverticulitis. The appendix is unremarkable. There is no significant mesenteric, retroperitoneal, or pelvic sidewall lymph nodes. The aorta is nonaneurysmal. There is no significant atherosclerotic disease appreciated. The solid pelvic viscera are grossly unremarkable. There is no free fluid or free air. The anterior abdominal wall demonstrates postoperative change of the right upper quadrant which may represent prior open cholecystectomy. The lumbar vertebral body heights are grossly maintained in satisfactory alignment with minimal endplate Schmorl`s defects. There is mild to moderate facet arthrosis. There is no evidence of displaced fracture. Impression: Demonstration of a 3.4 millimeter calculus in the distal right ureter just at the ureterovesicular junction with associated right-sided hydronephrosis. Incidental note made of likely interval open cholecystectomy with residual cystic structure in the gallbladder fossa which may represent a peripherally calcified biloma. Otherwise, no acute intra-abdominal abnormalities are appreciated. Please note that all CT scans at this facility use dose modulation, iterative reconstruction, and/or weight-based dosing when appropriate to reduce radiation dose to as low as reasonably achievable. Dictated by Andry Delcid MD @ Apr 16 2020 10:35AM Signed by Dr. Andry Delcid @ Apr 16 2020 10:44AM
[2020-04-16] MEDS ORDERED: Tamsulosin 0.4 MG Cap.ER PO ONE (10:47)
[2020-04-16] MEDS ORDERED: HYDROmorphone 2 MG/ML Syringe IVPUSH ONE (11:40)
[2020-04-16] MEDS ORDERED: cefTRIAXone 1 GM Vial IVPUSH ONE (11:46)
[2020-04-16] MEDS ORDERED: cefTRIAXone 1 GM in Premix Bag 1 BAG IV ONE (11:55)
[2020-04-16] MEDS ORDERED: Sodium Chloride 0.9% 1,000 ML IV SCH (12:00)
--- NOTE | 2020-04-16 12:34 | EDM.PDOC ---
ED HPI GENERAL MEDICAL PROBLEM - General Chief Complaint: Genitourinary Problem Stated Complaint: swollen rt testicle Time Seen by Provider: 04/16/20 08:48 - History of Present Illness INITIAL COMMENTS - FREE TEXT/NARRATIVE: CHIEF COMPLAINT(S): Right testicular pain HISTORY OF PRESENT ILLNESS: This is a 44-year-old man without any significant past medical history who comes to the emergency department with a chief complaint of right testicular pain. The patient states that approximately 3 hours prior to arrival he started to experience right testicular pain and swelling. He denies any history of hernia. He states that his pain as 10 out of 10 and that it does start in his right flank. He denies any dysuria but states that it has been difficult to urinate. He states that he has not yet taken any pain medication. He states that the pain is intermittent. He denies any history of sexual transmitted infections. He denies any history of nephrolithiasis. He denies any associated fevers, chills, abdominal pain. REVIEW OF SYSTEMS: Constitutional: Denies fever, chills. Eyes: Denies eye pain Ears, Nose, Mouth, & Throat: Denies earache Cardiovascular: Denies chest pain Respiratory: Denies shortness of breath Gastrointestinal: Denies Nausea, vomiting, diarrhea, hematochezia. Genitourinary: Positive for right flank and right testicular pain, decreased urination. Denies hematuria, dysuria Skin:Denies a rash Neurological: Denies blurred vision, numbness, tingling, weakness Psychiatric: Denies depression PAST MEDICAL HISTORY: As per history of present illness and as reviewed below otherwise noncontributory. SURGICAL HISTORY: As per history of present illness and as reviewed below otherwise noncontributory. SOCIAL HISTORY: As per history of present illness and as reviewed below otherwise noncontributory. FAMILY HISTORY: As per history of present illness and as reviewed below otherwise noncontributory. EXAMINATION OF ORGAN SYSTEMS/BODY AREAS: Constitutional: Blood pressure is 158/96, heart rate 66, respiratory rate 18 with an oxygen saturation 96% on room air. Temperature 36.4 General: Young man who appears visibly in pain Psychiatric: Appropriate mood and affect. Eyes: No scleral icterus or conjunctival erythema ENMT: Moist mucous membranes. No pharyngeal erythema Cardiovascular: Regular, rate, and rhythm. No gallops, murmurs, or rubs. Bilateral upper extremity pulses symmetric and intact. No peripheral edema. No JVD. Respiratory: Lungs clear to auscultation bilaterally. No wheezes, rales, or rhonchi. Gastrointestinal: Soft, non-tender, non-distended. Normoactive bowel sounds Genitourinary: Mild suprapubic tenderness. There is some right flank tenderness. No CVA tenderness. The patient has normal male external genitalia. Both testes are distended. There are some mild tenderness on the right epididymal area. No obvious swelling. Positive cremasteric reflex. No evidence of transverse lie of either testicles. No hernia noted. Musculoskeletal: Normal range of motion. Skin: No lesions or abrasions. Neurological: Alert, GCS 15 MEDICAL DECISION MAKING AND COURSE IN THE ED WITH INTERPRETATION/REVIEW OF DIAGNOSTIC STUDIES: This is a 44-year-old man without any significant past medical history who comes to the emergency department with suprapubic pressure and right testicular pain. At this time we will obtain scrotal ultrasound to evaluate for torsion versus epididymal orchitis. On the differential also exist nephrolithiasis we will obtain a urinalysis and basic labs. Will hold off until ultrasound report of testicles is complete and reevaluate the patient. We will provide the patient with [place] for pain relief. 1 [place] did not help the patient therefore I provided the patient with additional [place]. Patient notifies us that he had vomited. States that he does not have any nausea but that the pain is severe. Therefore I provided the patient with 4 mg of IV morphine. The radiological images were viewed by myself along with reading the report from the radiologist. Scrotal ultrasound does not reveal any abnormality with normal flow. On reevaluation, the patient continued to have pain. Therefore at this time we will do a straight catheterization for urinalysis and obtain a CT abdomen pelvis without contrast to evaluate for nephrolithiasis. We will provide the patient with 0.5 mg of Dilaudid for pain relief. Laboratory: CBC is unremarkable. CMP reveals hyperglycemia at 159 and a mild elevation in AST at 74 and ALT at 127. Serum alcohol level is negative. Urinalysis was a clean catch and was negative for leukocyte esterase, positive for nitrites, and large for blood. Interpretation: Positive The radiological images were viewed by myself along with reading the report from the radiologist. CT abdomen pelvis without contrast reveals a 3.4 mm obstructive stone with right sided hydronephrosis. The calculus is located in the distal ureter just at the UVJ. Given the infection in the urine and the signs of hydronephrosis I am concerned about infected obstructive nephrolithiasis. Therefore I provided the patient with ceftriaxone IV. We will start the patient on IV fluids. We will provide the patient with Flomax 0.4 mg. We did send off a urine culture prior to administration of antibiotics. This is currently pending at this time I discussed the results with the patient and discussed that I would like to speak with the urologist regarding a plan. He was amenable to this. Therefore given that we do not have urology here in [place] I did contact [facility] in [place] and spoke with Dr. Saenz who recommended transfer given the location and the infection. She recommended ground transport and private vehicle. She states that she would let the emergency department know. I spoke with the patient and he does not have a person who is able to drive him therefore we will transfer the patient via ambulance. The patient will be transferred via BLS. He was provided with a urinary strainer. DISPOSITION: The patient was transferred to [facility] in [place] in stable condition CONDITION: Serious PROCEDURES: None FINAL IMPRESSION(S)/DIAGNOSES: 1. Acute infected obstructive nephrolithiasis Hunter Bates M.D. Testicle Pain Score (Numeric/FACES): 10 - Related Data Allergies Allergy/AdvReac Type Severity Reaction Status Date / Time No Known Allergies Allergy Verified 04/16/20 08:40 Home Meds: Home Meds . [No Known Home Meds] 04/16/20 [History] Past Medical History Cardiovascular History: Reports: None Respiratory History: Reports: None Gastrointestinal History: Reports: None Endocrine/Metabolic History: Reports: None - Infectious Disease History Infectious Disease History: Reports: Chicken Pox - Past Surgical History Other HEENT Surgeries/Procedures: wisdom teeth extraction GI Surgical History: Reports: Cholecystectomy Musculoskeletal Surgical History: Reports: ORIF, Other (See Below) Social & Family History - Family History Family Medical History: No Pertinent Family History Oncologic: Reports: Other (See Below) Other Oncologic Family History: per pt report his mother of cancer "in volving the nerves" - Tobacco Use Tobacco Use Status *Q: Never Tobacco User - Caffeine Use Caffeine Use: Reports: None - Recreational Drug Use Recreational Drug Use: No ED ROS GENERAL - Review of Systems Review Of Systems: See Below ED EXAM, GENERAL - Physical Exam Exam: See Below Course - Vital Signs Last Recorded V/S: Last Vital Signs Temp 36.4 C 04/16/20 08:41 Pulse 67 04/16/20 10:54 Resp 18 04/16/20 08:41 BP 167/96 H 04/16/20 10:54 Pulse Ox 98 04/16/20 10:54 - Orders/Labs/Meds Orders: Active Orders 24 hr Category Date Time Status Testicular US [Scrotum and Contents] [US] Stat Exams 04/16/20 08:36 Taken CULTURE URINE [RM] Stat Lab 04/16/20 10:55 Received Sodium Chloride 0.9% [Normal Saline] 1,000 ml Med 04/16/20 12:00 Active IV ASDIRECTED Medication Orders Sodium Chloride (Normal Saline) 1,000 mls @ 999 mls/hr IV ASDIRECTED CHICO Last Admin: 04/16/20 12:14 Dose: 999 mls/hr Documented by: [id number] Labs: Laboratory Tests 04/16/20 04/16/20 04/16/20 Range/Units 08:45 08:45 08:45 WBC 10.12 (4.0-11.0) K/uL RBC 5.76 (4.50-5.90) M/uL Hgb 17.1 H (13.0-17.0) g/dL Hct 49.8 (38.0-50.0) % MCV 86.5 (80.0-98.0) fL MCH 29.7 (27.0-32.0) pg MCHC 34.3 (31.0-37.0) g/dL RDW Std Deviation 41.1 (28.0-62.0) fl RDW Coeff of Harris 13 (11.0-15.0) % Plt Count 317 (150-400) K/uL MPV 9.90 (7.40-12.00) fL Neut % (Auto) 69.0 (48.0-80.0) % Lymph % (Auto) 24.2 (16.0-40.0) % [place] % (Auto) 6.0 (0.0-15.0) % Eos % (Auto) 0.4 (0.0-7.0) % Baso % (Auto) 0.4 (0.0-1.5) % Neut # (Auto) 7.0 H (1.4-5.7) K/uL Lymph # (Auto) 2.5 H (0.6-2.4) K/uL [place] # (Auto) 0.6 (0.0-0.8) K/uL Eos # (Auto) 0.0 (0.0-0.7) K/uL Baso # (Auto) 0.0 (0.0-0.1) K/uL Nucleated RBC % 0.0 /100WBC Nucleated RBCs # 0 K/uL Sodium 141 (136-148) mmol/L Potassium 3.9 (3.5-5.1) mmol/L Chloride 104 (98-107) mmol/L Carbon Dioxide 23.6 (21.0-32.0) mmol/L BUN 12 (7.0-18.0) mg/dL Creatinine 1.2 (0.8-1.3) mg/dL Est Cr Clr Drug Dosing 79.42 mL/min Estimated GFR (MDRD) > 60.0 ml/min Glucose 159 H (74-106) mg/dL Calcium 9.6 (8.5-10.1) mg/dL Total Bilirubin 0.5 (0.2-1.0) mg/dL AST 74 H (15-37) IU/L ALT 127 H (14-63) IU/L Alkaline Phosphatase 78 (46-116) U/L Total Protein 8.8 H (6.4-8.2) g/dL Albumin 4.1 (3.4-5.0) g/dL Globulin 4.7 H (2.6-4.0) g/dL Albumin/Globulin Ratio 0.9 (0.9-1.6) Urine Color Urine Appearance Urine pH (5.0-8.0) Ur Specific [place] (1.001-1.035) Urine Protein (NEGATIVE) mg/dL Urine Glucose (UA) (NEGATIVE) mg/dL Urine Ketones (NEGATIVE) mg/dL Urine Occult Blood (NEGATIVE) Urine Nitrite (NEGATIVE) Urine Bilirubin (NEGATIVE) Urine Ictotest Urine Urobilinogen (<2.0) EU/dL Ur Leukocyte Esterase (NEGATIVE) Urine RBC (0-2/HPF) Urine WBC (0-5/HPF) Ur Epithelial Cells (NONE-FEW) Urine Bacteria (NEGATIVE) Ethyl Alcohol < 3.0 mg/dL 04/16/20 Range/Units 10:55 WBC (4.0-11.0) K/uL RBC (4.50-5.90) M/uL Hgb (13.0-17.0) g/dL Hct (38.0-50.0) % MCV (80.0-98.0) fL MCH (27.0-32.0) pg MCHC (31.0-37.0) g/dL RDW Std Deviation (28.0-62.0) fl RDW Coeff of Harris (11.0-15.0) % Plt Count (150-400) K/uL MPV (7.40-12.00) fL Neut % (Auto) (48.0-80.0) % Lymph % (Auto) (16.0-40.0) % [place] % (Auto) (0.0-15.0) % Eos % (Auto) (0.0-7.0) % Baso % (Auto) (0.0-1.5) % Neut # (Auto) (1.4-5.7) K/uL Lymph # (Auto) (0.6-2.4) K/uL [place] # (Auto) (0.0-0.8) K/uL Eos # (Auto) (0.0-0.7) K/uL Baso # (Auto) (0.0-0.1) K/uL Nucleated RBC % /100WBC Nucleated RBCs # K/uL Sodium (136-148) mmol/L Potassium (3.5-5.1) mmol/L Chloride (98-107) mmol/L Carbon Dioxide (21.0-32.0) mmol/L BUN (7.0-18.0) mg/dL Creatinine (0.8-1.3) mg/dL Est Cr Clr Drug Dosing mL/min Estimated GFR (MDRD) ml/min Glucose (74-106) mg/dL Calcium (8.5-10.1) mg/dL Total Bilirubin (0.2-1.0) mg/dL AST (15-37) IU/L ALT (14-63) IU/L Alkaline Phosphatase (46-116) U/L Total Protein (6.4-8.2) g/dL Albumin (3.4-5.0) g/dL Globulin (2.6-4.0) g/dL Albumin/Globulin Ratio (0.9-1.6) Urine Color BROWN Urine Appearance CLOUDY Urine pH 5.0 (5.0-8.0) Ur Specific [place] >= 1.030 (1.001-1.035) Urine Protein 100 H (NEGATIVE) mg/dL Urine Glucose (UA) NEGATIVE (NEGATIVE) mg/dL Urine Ketones NEGATIVE (NEGATIVE) mg/dL Urine Occult Blood LARGE H (NEGATIVE) Urine Nitrite POSITIVE H (NEGATIVE) Urine Bilirubin SMALL H (NEGATIVE) Urine Ictotest NEGATIVE Urine Urobilinogen 1.0 (<2.0) EU/dL Ur Leukocyte Esterase NEGATIVE (NEGATIVE) Urine RBC TOO NUMEROUS TO CT (0-2/HPF) Urine WBC 5-10 (0-5/HPF) Ur Epithelial Cells MODERATE (NONE-FEW) Urine Bacteria 3+ H (NEGATIVE) Ethyl Alcohol mg/dL Meds: Medications Generic Name Dose Route Start Last Admin Trade Name Maria Isabel PRN Reason Stop Dose Admin Sodium Chloride 1,000 mls @ 999 mls/hr 04/16/20 12:00 04/16/20 12:14 Normal Saline IV 999 mls/hr ASDIRECTED CHICO Administration Discontinued Medications Generic Name Dose Route Start Last Admin Trade Name Maria Isabel PRN Reason Stop Dose Admin Hydrocodone Bitart/Acetaminophen 1 tab 04/16/20 08:46 04/16/20 08:50 [place] 325-5 Mg PO 04/16/20 08:47 1 tab ONETIME ONE Administration Hydrocodone Bitart/Acetaminophen 1 tab 04/16/20 09:20 04/16/20 09:45 [place] 325-5 Mg PO 04/16/20 09:21 Not Given ONETIME ONE Hydromorphone HCl 0.5 mg 04/16/20 11:40 04/16/20 12:14 Dilaudid IVPUSH 04/16/20 11:41 0.5 mg ONETIME ONE Administration Ceftriaxone Sodium/Dextrose 1 50 mls @ 100 mls/hr 04/16/20 11:55 04/16/20 12:08 gm/ Premix IV 04/16/20 12:24 100 mls/hr ONETIME ONE Administration Morphine Sulfate 4 mg 04/16/20 09:45 04/16/20 09:50 Morphine IVPUSH 04/16/20 09:46 4 mg ONETIME ONE Administration Ondansetron HCl 4 mg 04/16/20 09:40 04/16/20 09:42 Zofran IVPUSH 04/16/20 09:41 4 mg ONETIME ONE Administration Ondansetron HCl Confirm 04/16/20 09:41 04/16/20 09:45 Zofran Administered 04/16/20 09:42 Not Given Dose 4 mg .ROUTE .STK-MED ONE Tamsulosin HCl 0.4 mg 04/16/20 10:47 04/16/20 11:16 Flomax PO 04/16/20 10:48 0.4 mg ONETIME ONE Administration Departure - Departure Time of Disposition: 11:45 Disposition: DC/Tfer to Acute Hospital 02 Condition: Fair Clinical Impression: Nephrolithiasis - Discharge Information *PRESCRIPTION DRUG MONITORING PROGRAM REVIEWED*: No *COPY OF PRESCRIPTION DRUG MONITORING REPORT IN PATIENT MT: No Referrals: Wayne Seals [employer]ING [employer]GER [Primary Care Provider] - Sepsis Event Note (ED) - Evaluation Sepsis Screening Result: No Definite Risk - Focused Exam Vital Signs: Vital Signs Temp Pulse Resp BP Pulse Ox 04/16/20 10:54 67 167/96 H 98 04/16/20 08:41 36.4 C 66 18 158/96 H 96 - My Orders Last 24 Hours: My Active Orders 04/16/20 08:36 Testicular US [Scrotum and Contents] [US] Stat 04/16/20 10:55 CULTURE URINE [RM] Stat 04/16/20 12:00 Sodium Chloride 0.9% [Normal Saline] 1,000 ml IV ASDIRECTED - Assessment/Plan Last 24 Hours: My Active Orders 04/16/20 08:36 Testicular US [Scrotum and Contents] [US] Stat 04/16/20 10:55 CULTURE URINE [RM] Stat 04/16/20 12:00 Sodium Chloride 0.9% [Normal Saline] 1,000 ml IV ASDIRECTED
--- NOTE | 2020-04-17 10:33 | US ---
EXAM DATE: 04/16/20 PATIENT'S AGE: 44 Patient: [facility] Facility: [facility] Site . Site : [id number] Study: US-Testicle -04/16/2020 9:27:27 AM Ordering Physician: Paulo Harrison Final Report: Indication: Right-sided testicular pain. Technique: Sonography of the scrotum and its contents was performed. Doppler was also performed to assess for hyperemia or torsion. Comparison: No Findings: The testes are normal in size and echogenicity. The right measures 4.5 x 3.2 x 2.3 centimeters and the left measures 4.9 x 2.9 x 2.2 centimeters. No testicular mass. Normal Doppler flow without evidence of torsion. The epididymis bilaterally appears normal without evidence of abnormal flow. No significant fluid. Normal scrotal skin thickening. No varicocele. Impression: Normal examination Dictated by Alek Carvajal MD @ Apr 16 2020 9:32AM Signed by: Alek Carvajal MD @04/16/2020 9:34:40 AM (Electronic Signature) Report Signed by Proxy. JANEL
== END 2020-04-16 13:14 ==
LOC: MW.ED 08:25
DX: N13.2 Hydronephrosis with renal and ureteral calculous obstruction (principal)
CPT/HCPCS: 36415; 74176; 76870; 80053; 80179; 81001; 85025; 87086; 93976; 96365; 96375; 99285; A9270; J0696; J1170; J2270; J2405; J7030

== ENCOUNTER → 2021-12-09 | Emergency (ER) | payer OTHER ==
[~2021-12-09] MED LIST: Aspirin 81 MG Tab.Chew PO ONE
[2022-01-06 14:55] LABS: BLOOD UREA NITROGEN,BUN 14 mg/dL (7.0-18.0); CARBON DIOXIDE,CO2 27.9 mmol/L (21.0-32.0); CHLORIDE,CL 100 mmol/L (98-107); ESTIMATED GFR 105 mL/min (>60); GLUCOSE RANDOM 191 mg/dL (74-106); POTASSIUM,K 4.2 mmol/L (3.5-5.1); SODIUM,NA 136 mmol/L (136-148)
== END | disposition home or self-care (01) ==
LOC: MW.ED 21:30
DX: R07.89 Other chest pain (principal)
CPT/HCPCS: 36415; 71045; 80053; 84484; 85025; 99285; A9270

== ENCOUNTER 2022-03-05 22:25 | Emergency (ER) | payer OTHER ==
[2022-03-05] MEDS ORDERED: Sodium Chloride 0.9% 1,000 ML IV ONE (23:26)
[2022-03-05] MEDS ORDERED: Ondansetron 4 MG/2 ML SDV IVPUSH ONE (23:26)
[2022-03-05] MEDS ORDERED: Ketorolac 30 MG/ML SDV IVPUSH ONE (23:26)
[2022-03-05] MEDS ORDERED: Sodium Chloride 0.9% 10 ML Syringe FLUSH PRN (23:26)
[2022-03-05] MEDS ORDERED: Sodium Chloride 0.9% 2.5 ML Syringe FLUSH PRN (23:26)
[2022-03-05] MEDS ORDERED: fentaNYL 50 MCG/ML SDV IVPUSH ONE (23:26)
[2022-03-06 00:38] LABS: CARBON DIOXIDE,CO2 27.6 mmol/L (21.0-32.0); POTASSIUM,K 4.3 mmol/L (3.5-5.1)
[2022-03-06] MEDS ORDERED: Tamsulosin 0.4 MG Cap.ER PO ONE (01:04)
[2022-03-06] MEDS ORDERED: Sodium Chloride 0.9% 1,000 ML IV ONE (01:12)
[2022-03-06] MEDS ORDERED: Ibuprofen 600 MG Tab PO ONE (02:08)
[2022-03-06] MEDS ORDERED: Acetaminophen/HYDROcodone 325-5 MG Tab PO ONE (02:08)
== END 2022-03-06 02:27 | disposition home or self-care (01) ==
LOC: MW.ED 22:25
DX: N13.2 Hydronephrosis with renal and ureteral calculous obstruction (principal); R73.9 Hyperglycemia, unspecified
CPT/HCPCS: 36415; 74176; 80053; 83690; 85025; 96361; 96374; 96375; 99284; A9270; J1885; J2405; J3010; J3490; J7030